=== PATIENT | female | born 1975 | race Caucasian/White ===

== ENCOUNTER 2020-07-13 07:30 | Emergency (ER) | payer BC, SELFPAY ==
--- NOTE | ~2020-07-13 | XR_ITS ---
EXAMINATION: XR chest 1V portable DATE: 07/13/2020 08:18 INDICATION: Cough, fever, shortness of breath. COVID-19 exposure. TECHNIQUE: A single frontal view of the chest was obtained. COMPARISON: Chest 2 views 09/22/2019 FINDINGS: The chest demonstrates clear lungs without pneumonia, pleural effusion, or pneumothorax. Th e heart size is normal. IMPRESSION: 1. No acute cardiopulmonary disease. Reviewed, dictated and finalized at location A.
[2020-07-13 07:39] VITALS: BP 138/96; PULSE 93; RESP 25; TEMP 37.9; O2SAT 97
--- NOTE | 2020-07-13 07:47 | ECG_ITS ---
Measurements Intervals [place] Rate: 93 P: 18 LA: 165 QRS: -13 QRSD: 78 T: 6 QT: 325 QTc: 405 Interpretive Statements SINUS RHYTHM BORDERLINE T WAVE ABNORMALITY- INFERIOR LEADS BASELINE ARTIFACT- I, II, AVR, AVL, AVF, V1 BORDERLINE ECG Electronically Signed On 07-13-2020 7:58:44 CDT by Sharad Sebastian D.O.
[2020-07-13 07:51] VITALS: PULSE 96
--- NOTE | 2020-07-13 07:56 | ED.SOB ---
HPI - SOB/Dyspnea General Chief Complaint: Shortness of Breath/Dyspnea Stated Complaint: fever/SOB/exposed to covid Time Seen by Provider: 07/13/20 07:49 Source: patient Mode of arrival: ambulatory Limitations: no limitations History of Present Illness HPI Narrative: Patient presents with COVID. Her mother was called with positive several days ago. Patient started her symptoms 2 days ago with diarrhea. Yesterday she had cough and shortness of breath and fever. She has a history of orthostatic hypotension. She has a history of an autoimmune disease. She is on disability. She lives with her and son. She took Tylenol for the fever. 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 She does not work outside the home. She has a history of breast cancer with double mastectomy. She said she had a history of A. fib, but the Holter monitor from 2016 showed sinus rhythm, MD elicited complaint: shortness of breath and cough Pertinent past history: other (Breast cancer) Onset (ago): day(s) Timing: constant Severity: moderate Associated symptoms: fever, cough and other (Diarrhea) Related Data Allergies Allergy/AdvReac Type Severity Reaction Status Date / Time pantoprazole Allergy Mild Itching Verified 09/22/19 00:03 sulfamethoxazole Allergy Mild Rash Verified 09/22/19 00:03 trimethoprim Allergy Mild Rash Verified 09/22/19 00:03 Review of Systems Review of Systems: Narrative: CONSTITUTIONAL: She has fever. ENT: Denies rhinorrhea, congestion, but does have sore throat. CARDIOVASCULAR: Denies chest pain, palpitations, or edema. RESPIRATORY: She has cough and dyspnea. GASTROINTESTINAL: She has abdominal pain, nausea, but not vomiting. GENITOURINARY: Denies dysuria or hematuria. MUSCULOSKELETAL: Denies back pain, joint pain, but does have myalgia. NEUROLOGIC: She has headache. . All systems reviewed & are unremarkable except as noted in HPI and below PMFSH Past Medical History Medical History COVID-19 Surgical History Surgical History History of mastectomy Family History Family History (Updated 03/02/17 @ 23:56 by DOCTOR UNKNOWN) Mother Family history of obesity Patient's mother is in good health Family history of diabetes mellitus in first degree relative Hypertension Family history of anemia Family history of heart disease in male family member before age 55 Sibling Family history of migraine headaches Patient's sister is in good health Patient's brother is in good health Hypertension Grandparent Family history of Alzheimer's disease Family history of malignant neoplasm of brain, Onset Age: 62 Father Family history of malignant neoplasm of brain Patient's father is Other Family history of allergic disorder Social History Social History Smoking status: Never smoker Second hand tobacco smoke exposure: No Smoking end date: 11/26/05 Alcohol intake: never Gender identity (if verbalized by the patient): Female Exam Narrative: Exam Narrative: GENERAL: Well-appearing, well-nourished, and in no acute distress. HEAD: Normocephalic, atraumatic. EYES: PERRLA and EOMI. ENT: Nares clear, no rhinorrhea or epistaxis. Mucous membranes moist. NECK: Supple. CHEST: Clear to auscultation. No respiratory distress. HEART: Regular rate and rhythm. No murmur heard. Normal peripheral pulses. ABDOMEN: Soft, nontender, nondistended, normal active bowel sounds. EXTREMITIES: Normal range of motion. No edema. SKIN: Warm, dry, no rash. NEURO: No focal deficits. Alert and oriented x3. PSYCH: Normal mood and affect. Course Vital Signs Vital signs: Vital Signs Temperature 100.3 F H 07/13/20 07:39 Pulse Rate 93 07/13/20 07:39 Respiratory Rate 25 H 07/13/20 07:39 Blood Pressure 138/96 H 07/13/20 07:39 Pulse Oximetry 97
[2020-07-13 08:11] LABS: Basophils Percent Auto 0.4 % (0.2-1.2); Eosinophils Percent Auto 0.6 % (0-4.4); Hematocrit 38.8 % (37.0-47.0); Hemoglobin 12.6 g/dL (12.0-15.0); Immature Granulocyte Absolute 0.02 K/mm3 (0.00-0.031); Immature Granulocyte Percent A 0.4 % (0-0.5); Lymphocytes Absolute Auto 0.68 K/mm3 (0.9-3.2); Lymphocytes Percent Auto 13.9 % (18.3-44.2); Mean Corpuscular HGB Conc 32.5 g/dl (32-36); Mean Corpuscular Hemoglobin 27.6 pg (26-34); Mean Corpuscular Volume 85.1 fl (80-100); Mean Platelet Volume 9.7 fl (7.4-10.4); Monocytes Absolute Auto 0.5 K/mm3 (0.1-0.6); Monocytes Percent Auto 10.5 % (2.6-8.5); Neutrophils Absolute Auto 3.6 K/mm3 (1.3-6.7); Neutrophils Percent Auto 74.2 % (45.5-73.1); Platelet Count Result 219 k/mm3 (150-375); Red Blood Count 4.56 M/mm3 (4.2-5.4); Red Cell Distribution Width 13.4 % (11.5-14.5); White Blood Count 4.9 K/mm3 (4.5-10.0)
[2020-07-13 08:17] LABS: Add Urine Microscopic? YES; Appearance Urine Clear (Clear); Bilirubin Urine Negative (Negative); Blood Urine Negative (Negative); Color Urine Straw (Yellow); Glucose Urine UA Negative (Negative); Ketones Urine Negative (Negative); Leukocyte Esterase Ur 3+ LEU/UL (Negative); Mucus Urine Rare /lpf; Nitrate Urine Negative (Negative); Protein Urine Negative (Negative); Specific Grav Ur 1.009 (1.001-1.035); Squamous Epithelial Cell Urine Rare /hpf (Few); Transitional Epi Cells Urine Rare /hpf (None Seen); Urobilinogen Urine Negative mg/dL (<2.0); WBC Urine 16-20 /hpf
[2020-07-13 08:33] LABS: Lactic Acid Reflex 0.9 mmol/L (0.7-2.1)
[2020-07-13 08:35] LABS: Alanine Aminotransferase 25 U/L (4-35); Albumin Level 4.2 g/dL (3.5-5.1); Alkaline Phosphatase 129 U/L (38-126); Anion Gap 9 mmol/L (8-16); Aspartate Amino Transferase 31 U/L (14-36); Bilirubin,Total 0.3 mg/dL (0.2-1.3); Blood Urea Nitrogen 10 mg/dL (7-17); Carbon Dioxide 28 mmol/L (22-30); Chloride 103 mmol/L (98-107); Estimated CRCL calculation 101 ml/min; Estimated Glomerular Filt Rate > 60; Glucose 133 mg/dL (65-105); Sodium 140 mmol/L (137-145)
[2020-07-13 09:07] LABS: Troponin I < 0.012 ng/mL (0.000-0.034)
[2020-07-13 09:10] VITALS: BP 122/82; PULSE 93; RESP 20; O2SAT 99
[2020-07-13 09:33] VITALS: BP 114/78; PULSE 90; RESP 12; O2SAT 98
== END 2020-07-13 09:35 | disposition home or self-care (01) ==
PROVIDERS: Emergency Provider Emergency Medicine; PCP Internal Medicine Cardiovascular Disease
DX: U07.1 COVID-19 (principal); Z85.3 Personal history of malignant neoplasm of breast; Z90.13 Acquired absence of bilateral breasts and nipples
CPT/HCPCS: 36415; 71045; 80053; 81001; 83605; 84484; 85025; 87040; 87086; 93005; 99284

== ENCOUNTER 2020-09-29 08:19 | Outpatient (CLI) | payer BC, MEDICARE, SELFPAY ==
--- NOTE | 2020-10-27 15:45 | WPDHOMESLEEP ---
Sleep Study - Home Unattended Date of Study: 09/29/20 Ordering Provider: Merlin Watson MD Interpreting Physician: Sara Lawson MD Home Sleep Study Type: Watch PAT Height: 1.75 m Weight: 109.769 kg Body Mass Index: 35.7 [place]: 17 Reason for Sleep Study Sleep problems Sleep History Vika Freeman is a 45 year old female who was referred for a portable home sleep test due to sleep problems. The sleep survey is not available to review. Her office visit is reviewed for symptoms, and her [place] score was 17 on Jul 15, 2020. Her medical history is reviewed. [facility] Past Medical History Medical History (Updated 10/27/20 @ 16:30 by Sara Lawson MD) Breast cancer stage 3, bilateral mastectomies Chronic migraine COVID-19 Depression with anxiety Diabetes mellitus type 2 in obese Gout History of stroke with residual deficit left-sided weakness History of thyroid cyst repaired Hypertension Hypothyroidism Multiple system atrophy Sleep disturbance Surgical History Surgical History (Updated 10/27/20 @ 16:04 by Sara Lawson MD) History of section History of mastectomy History of tonsillectomy Hx of cholecystectomy 1995 S/P ERCP twice in 2007 Family History Family History (Updated 03/02/17 @ 23:56 by DOCTOR UNKNOWN) Mother Family history of obesity Patient's mother is in good health Family history of diabetes mellitus in first degree relative Hypertension Family history of anemia Family history of heart disease in male family member before age 55 Sibling Family history of migraine headaches Patient's sister is in good health Patient's brother is in good health Hypertension Grandparent Family history of Alzheimer's disease Family history of malignant neoplasm of brain, Onset Age: 62 Father Family history of malignant neoplasm of brain Patient's father is Other Family history of allergic disorder Social History Social History Smoking status: Never smoker Second hand tobacco smoke exposure: No Smoking end date: 11/26/05 Alcohol intake: never Gender identity (if verbalized by the patient): Female Medications Medications: No medicaiton list was given; these medications were on the med reconciliation from 2019 allopurinol 300 mg a day atorvastatin 40 mg a day cyclobenzaprine 10 mg hydroxyzine hydrochloride 25 mg Q 12 hours p.r.n. itching levothyroxine 88 mcg a day meclizine 25 mg q.8 hours p.r.n. dizziness metformin ER 500 mg once daily Nuetec ODT 75 mg disintegrating tablet as needed MiraLax 17 g daily Trulance 3 mg a day vitamin D2 25173 units weekly Trulance 3 mg daily Sleep Procedure The sleep study was completed using SembrairePAT a technically adequate device with seven channels: peripheral arterial tone, actigraphy, body position, snore, respiratory movement, pulse oximetry, sleep staging, and heart rate. Prior to using the device, the patient received verbal and written instructions for its application and was provided with the help desk phone number for additional telephonic instruction with 24-hour availability of qualified personnel to answer questions. Sleep Architecture The total recording time was 8 hours 33 minutes. The total sleep time was 7 hours 30 minutes. The patient had 28.4% REM out of the total sleep time. She had 37 0.3% light sleep and 34% deep sleep. This is normal sleep architecture. She spent 12. 2% of the test awake and 87.7% of the test asleep. Sleep efficiency was 87%, normal. Sleep latency was 19 minutes which is normal. REM latency was 201 minutes which is prolonged. She woke up 7 times during the night. there were 4 REM cycles the became progressively longer during the study which is normal. She spent 26% of the study supine, 68% on the right lateral position and 5% in the left lateral position. Respiratory Analysis The apnea-hypopnea index is
[2020-10-27 15:55] VITALS: BMI 35.7
== END 2020-09-29 08:20 | disposition home or self-care (01) ==
LOC: ANHCSM 08:20
PROVIDERS: PCP Internal Medicine Cardiovascular Disease; Visit Provider Family Medicine
DX: G47.10 Hypersomnia, unspecified (principal)
CPT/HCPCS: 95800

== ENCOUNTER 2021-01-20 08:15 | Outpatient (CLI) | payer BC, MEDICARE, SELFPAY ==
--- NOTE | 2021-01-20 16:12 | WPDPFTINT ---
PFT Interpretation This is a pulmonary function test with pre and post-bronchodilator spirometry, plethysmography and diffusing capacity. The test was performed and results interpreted in accordance with the 2019 and 2005 ATS/ERS Task Force guidelines respectively using the Ross/Yaquelin reference equations. Findings: Spirometry: The contour of the inspiratory and expiratory flow tracing are normal. The pre bronchodilator FVC is 3.60 L, 90% predicted. The pre bronchodilator FEV1 is 3.09 L, 101% predicted. The FEV1: FVC ratio was 86%. The post bronchodilator FVC is 3.67 L, representing a 2% increase. The post bronchodilator FEV1 is 3.11 L, representing a 1% increase. Plethysmography: The total lung capacity is 4.89 L, 81% predicted. The functional residual capacity is 1.97 L, 74% predicted. The residual volume is 1.29 L, 61% predicted. Diffusing capacity: The absolute diffusion capacity is 19.3, 64% predicted. Diffusion capacity corrected for alveolar volume is 4.25, 101% predicted. Impression: There is a mild restrictive ventilatory abnormality with a normal FEV1. The spirometry is normal without evidence of an obstructive abnormality. There is no significant improvement after inhaling a single dose of albuterol. The absolute diffusing capacity is mildly decreased and normalizes when corrected for alveolar volume. There are no prior studies for comparison
--- NOTE | 2021-01-20 16:15 | WPDSIXMINUTE ---
Six Minute Walk This is a 6 minutes walk test. The test was performed and interpreted in accordance with the 2014 ERS/ATS task force guidelines. Findings: The patient's resting room air oxygen saturation measured by pulse oximetry was 97% and her heart rate was 72 bpm. Patient ambulated for 427 meters and oxygen saturation remained 94 to 98%. Heart rate at the end of the study was 105 bpm. There are no prior studies for comparison.
== END 2021-01-20 08:16 | disposition home or self-care (01) ==
PROVIDERS: PCP Family Medicine; Visit Provider Internal Medicine Critical Care Medicine
DX: R06.02 Shortness of breath (principal); R94.2 Abnormal results of pulmonary function studies
CPT/HCPCS: 94060; 94618; 94726; 94729

== ENCOUNTER → 2021-09-15 13:15 | Outpatient (CLI) | payer BC, MEDICARE, SELFPAY ==
--- NOTE | ~2021-09-15 | MR_ITS ---
EXAMINATION: MR brain/brain stem wo/w con DATE: 09/15/2021 14:09 INDICATION: Stroke. Brain mass. Left hemiparesis. TECHNIQUE: Magnetic resonance imaging (MRI) of the brain and brainstem was performed without and with 20 mL MultiHance intravenous contrast. Sequences included sagittal and axial T1-weighted FSE, axial diffusion-weighted FS EPI, axial T2*-weighted GRE, axial T2-weighted FLAIR Propeller, and axial T2-we ighted Propeller. Postcontrast sequences included axial, sagittal, and coronal T1-weighted FSE. Appar ent diffusion coefficient (ADC) maps were created. COMPARISON: Brain MRI 09/22/2019 FINDINGS: Overlying the left parietal lobe, there is a 1.6 x 1.2 x 1.7 cm enhancing extra-axial mass with dural tails, consistent with a meningioma. There is no acute ischemic infarct or intracranial he morrhage. The ventricles are normal in size. The paranasal sinuses are clear. The orbits are normal. The mastoid air cells are normal. In the right posterior scalp, there is a 2.1 cm nonenhancing subcut aneous mass, most likely a sebaceous cyst. IMPRESSION: 1. 1.7 cm meningioma overlying left parietal lobe, not significantly changed from 1.6 cm on 9. Reviewed, dictated and finalized at location A. IMPRESSION: 1. 1.7 cm meningioma overlying left parietal lobe, not significantly changed fr om 1.6 cm on 09/22/2019.
[2021-09-15 13:46] LABS: Estimated Glomerular Filt Rate > 60
== END ==
DX: Z86.73 Personal history of transient ischemic attack (TIA), and cerebral infarction without residual deficits (principal); R93.0 Abnormal findings on diagnostic imaging of skull and head, not elsewhere classified
CPT/HCPCS: 70553; A9577

== ENCOUNTER 2022-05-23 03:26 | Emergency (ER) | payer BC, MEDICARE, SELFPAY ==
--- NOTE | ~2022-05-23 | CT_ITS ---
EXAMINATION: CTA chest PE protocol DATE: 05/23/2022 06:40 INDICATION: Tachycardia. TECHNIQUE: Computed tomography (CT) pulmonary angiogram of the chest was performed with 100 mL Omnipa que-350 intravenous contrast. Additional 3D reconstructions utilizing coronal maximum intensity proje ction (MIP) were performed. Automated exposure control and iterative reconstruction technique were em ployed. The dose-length product was 864.80 mGy-cm. COMPARISON: None FINDINGS: Excellent contrast opacification of the pulmonary arteries. There is mild streak artifact from dense contrast in the superior vena cava and right atrium. Mild scattered respiratory motion artifact which does not significantly limit evaluation. No pulmonary embolism. No pneumonia, pulmonary edema, pleur al effusion or pneumothorax. Minimal discoid atelectasis at the lingula. Heart size is normal. No per icardial effusion. Thoracic aorta is normal in caliber with no dissection. No pathologically enlarged thoracic or upper abdominal lymphadenopathy. A couple small foci of pneumobilia in the liver likely related to prior cholecystectomy with surgical clips at the gallbladder fossa. Focal hepatic steatosi s along the ligamentum teres. Mild thoracic spondylosis. IMPRESSION: 1. No pulmonary embolism or other acute cardiopulmonary disease. Reviewed, dictated and finalized at location A.
[2022-05-23 03:29] VITALS: BP 122/71; PULSE 116; RESP 20; TEMP 36.4; O2SAT 100
--- NOTE | 2022-05-23 03:31 | ECG_ITS ---
Measurements Intervals [place] Rate: 92 P: 36 IN: 152 QRS: -6 QRSD: 72 T: 10 QT: 336 QTc: 418 Interpretive Statements SINUS RHYTHM COMPARED TO ECG 07/13/2020 07:48:20 NO SIGNIFICANT CHANGES Electronically Signed On 05-23-2022 10:54:51 CDT by Som Caceres M.D.
[2022-05-23 03:50] VITALS: BP 105/92; PULSE 93; RESP 18; O2SAT 100
[2022-05-23 04:06] LABS: Basophils Percent Auto 0.4 % (0.2-1.2); Eosinophils Absolute Auto 0.1 K/mm3 (0-0.3); Eosinophils Percent Auto 0.9 % (0-4.4); Hematocrit 41.2 % (37.0-47.0); Hemoglobin 13.6 g/dL (12.0-15.0); Immature Granulocyte Absolute 0.01 K/mm3 (0.00-0.031); Immature Granulocyte Percent A 0.1 % (0-0.5); Lymphocytes Absolute Auto 2.22 K/mm3 (0.9-3.2); Lymphocytes Percent Auto 31.7 % (18.3-44.2); Mean Corpuscular Hemoglobin 28.4 pg (26-34); Mean Platelet Volume 9.1 fl (7.4-10.4); Monocytes Absolute Auto 0.4 K/mm3 (0.1-0.6); Monocytes Percent Auto 6.1 % (2.6-8.5); Neutrophils Absolute Auto 4.3 K/mm3 (1.3-6.7); Neutrophils Percent Auto 60.8 % (45.5-73.1); Platelet Count Result 275 k/mm3 (150-375); Red Blood Count 4.79 M/mm3 (4.2-5.4)
[2022-05-23 04:15] LABS: Alanine Aminotransferase 27 U/L (6-35); Albumin Level 4.9 g/dL (3.5-5.1); Alkaline Phosphatase 129 U/L (38-126); Anion Gap 8 mmol/L (8-16); Aspartate Amino Transferase 28 U/L (14-36); Bilirubin,Total 0.3 mg/dL (0.2-1.3); Blood Urea Nitrogen 19 mg/dL (7-17); Calcium 9.8 mg/dL (8.4-10.2); Carbon Dioxide 30 mmol/L (22-30); Chloride 103 mmol/L (98-107); Estimated CRCL calculation 98 ml/min; Estimated Glomerular Filt Rate > 60; Glucose 128 mg/dL (65-110); Magnesium 2.2 mg/dL (1.6-2.3); Potassium 4.4 mmol/L (3.4-5.0); Sodium 141 mmol/L (137-145)
--- NOTE | 2022-05-23 04:41 | ED.ARRPALP ---
HPI - Arrhythmia/Palpitations General Chief Complaint: Arrhythmia/Palpitations <Peter Cristobal MD - Last Filed: 05/23/22 06:52> Stated Complaint: irregular hearbeat <Peter Cristobal MD - Last Filed: 05/23/22 06:52> Time Seen by Provider: 05/23/22 03:30 <Peter Cristobal MD - Last Filed: 05/23/22 06:52> History of Present Illness HPI narrative: 47-year-old female presenting to the emergency department for evaluation of heart palpitations. Patient states that her heart rate has been close to 100 for most the night and that she had an episode where it did hit 150 bpm. Patient states she does have some associated chest tightness. Patient states that she had a TIA on the and was treated in outside hospital. Patient denies any prior history of HI but does states she has prior history of CVA and TIAs. <Peter Cristobal MD - Last Filed: 05/23/22 06:52> Related Data Home Medications: Home Medications Medication Instructions Recorded Confirmed allopurinol 100 mg tablet 100 mg PO DAILY 12/21/20 12/21/20 (Zyloprim) alprazolam 1 mg tablet (Xanax) 1 mg PO DAILY 12/21/20 12/21/20 aripiprazole 2 mg tablet (Abilify) 2 mg PO DAILY 12/21/20 12/21/20 aspirin 81 mg tablet,delayed 81 mg PO DAILY 12/21/20 12/21/20 release (Adult Aspirin Regimen) atorvastatin 20 mg tablet (Lipitor) 20 mg PO DAILY 12/21/20 12/21/20 buspirone 5 mg tablet 5 mg PO BID 12/21/20 12/21/20 cephalexin HCl 500 mg tablet See Rx Instructions PO Q12H 12/21/20 12/21/20 cholecalciferol (vitamin D3) 125 125 mcg PO DAILY 12/21/20 12/21/20 mcg (5,000 unit) capsule cyclobenzaprine 5 mg tablet 5 mg PO TID PRN 12/21/20 12/21/20 erythromycin 500 mg particles in 500 mg PO DAILY 12/21/20 12/21/20 tablet ezetimibe 10 mg tablet (Zetia) 10 mg PO DAILY 12/21/20 12/21/20 ferrous sulfate 325 mg (65 mg 325 mg PO DAILY 12/21/20 12/21/20 iron) tablet gabapentin 300 mg capsule 300 mg PO DAILY 12/21/20 12/21/20 (Neurontin) hydroxyzine HCl 25 mg tablet 25 mg PO BID PRN 12/21/20 12/21/20 indomethacin 50 mg rectal 50 mg RECTAL BID 12/21/20 12/21/20 suppository (Indocin) linaclotide 290 mcg capsule 290 mcg PO DAILY 12/21/20 12/21/20 (Linzess) meclizine 25 mg chewable tablet 25 mg PO DAILY 12/21/20 12/21/20 meloxicam 7.5 mg tablet (Mobic) 7.5 mg PO DAILY 12/21/20 12/21/20 metformin 500 mg tablet 500 mg PO DAILY 12/21/20 12/21/20 (Glucophage) midodrine 2.5 mg tablet 2.5 mg PO BID 12/21/20 12/21/20 modafinil 100 mg tablet (Provigil) 100 mg PO QAM 12/21/20 12/21/20 naproxen 500 mg tablet (Naprosyn) 500 mg PO BID 12/21/20 12/21/20 omeprazole 40 mg capsule,delayed 40 mg PO DAILY 12/21/20 12/21/20 release prazosin 2 mg capsule (Minipress) 2 mg PO BID 12/21/20 12/21/20 pregabalin 150 mg capsule (Lyrica) 150 mg PO BID 12/21/20 12/21/20 promethazine 25 mg tablet 25 mg PO Q6H PRN 12/21/20 12/21/20 thyroid (pork) 15 mg tablet 15 mg PO DAILY 12/21/20 12/21/20 ([place] Thyroid) tramadol 100 mg capsule 100 mg PO DAILY 12/21/20 12/21/20 24h,extended release(25-75) <Peter Cristobal MD - Last Filed: 05/23/22 06:52> Allergies/Adverse Reactions: Allergies Allergy/AdvReac Type Severity Reaction Status Date / Time pantoprazole Allergy Mild Itching Verified 05/23/22 03:34 sulfamethoxazole Allergy Mild Rash Verified 05/23/22 03:34 trimethoprim Allergy Mild Rash Verified 05/23/22 03:34 <Peter Cristobal MD - Last Filed: 05/23/22 06:52> [facility] Past Medical History Medical History: Medical History Breast cancer stage 3, bilateral mastectomies Chronic migraine COVID-19 Depression with anxiety Diabetes mellitus type 2 in obese Gout History of stroke with residual deficit left-sided weakness History of thyroid cyst repaired Hypertension Hypothyroidism Multiple system atrophy Sleep disturbance <Peter Cristobal MD - Last Filed: 05/23/22 06:52> Surgical History Surgical H
[2022-05-23 04:49] LABS: Troponin I < 0.012 ng/mL (0.000-0.034)
[2022-05-23] MEDS: SODIUM CHLORIDE 0.9% IV 500 ML 999 ML IV CONT (04:59)
[2022-05-23 05:39] VITALS: BP 114/92; PULSE 110; RESP 20; O2SAT 98
[2022-05-23 05:48] LABS: Free T4 Free Thyroxine Reflex 0.91 ng/dL (0.78-2.19)
[2022-05-23 06:08] VITALS: BP 107/86; PULSE 105; RESP 18; O2SAT 97
[2022-05-23 06:31] LABS: Total Triiodothyronine (T3) 1.09 NG/ML (0.97-1.69)
[2022-05-23 07:15] LABS: Troponin I < 0.012 ng/mL (0.000-0.034)
--- NOTE | 2022-05-23 08:20 | PC.NURSE ---
call care coordination and in the process of getting pt a monitor.
--- NOTE | 2022-05-26 12:53 | WPDHOLTEREM ---
Holter/Event Monitor Holter/Event Monitor Date of procedure: 05/26/22 Holter/Event Procedure: 48 Hr Holter Monitor Diagnosis: Palpitations Indications: Palpitation Image/Tracing Quality: Favorable Finding: The basic cardiac rhythm is sinus with normal [place] QRS and QT intervals. The heart rate varies from a minimum of 53 to a maximum of 140 with an average rate of 82. There were no abrupt pauses are examples of abnormal AV conduction observed. There were no examples of atrial fibrillation. Supraventricular ectopic activity was rare consisting of a total of 19 PACs during the entire 48 hours. There was 1 4 beat run of SVT that occurred on the day at 9:11 p.m.. Remainder of these were in the form of single beats. No ventricular ectopic activity of any kind was observed during this exam The patient maintained a diary which indicates there were long periods of the sensation of heart fluttering or dizziness a during these 48 hours. On every single occasion the patient's cardiac rhythm was sinus with normal heart rate and no ectopic activity of any kind Conclusion: 1. 48 hour Holter monitor essentially unremarkable with sinus rhythm and normal heart rate variability 2. Low-frequency atrial ectopic activity which included 1 4 beat run of SVT which was not symptomatic 3. No ventricular ectopic activity noted 4. Numerous diary entries all correlate with sinus rhythm without a rate Carlos Vitale MD [facility]
== END 2022-05-23 09:00 | disposition home or self-care (01) ==
PROVIDERS: Emergency Provider Emergency Medicine; PCP Family Medicine
DX: R00.2 Palpitations (principal); R00.0 Tachycardia, unspecified; I69.954 Hemiplegia and hemiparesis following unspecified cerebrovascular disease affecting left non-dominant side; E11.9 Type 2 diabetes mellitus without complications; I10 Essential (primary) hypertension; E03.9 Hypothyroidism, unspecified; M10.9 Gout, unspecified; F41.8 Other specified anxiety disorders; Z90.13 Acquired absence of bilateral breasts and nipples; Z85.3 Personal history of malignant neoplasm of breast; Z79.82 Long term (current) use of aspirin; Z79.84 Long term (current) use of oral hypoglycemic drugs
CPT/HCPCS: 36415; 71275; 80053; 83735; 84439; 84443; 84480; 84484; 85025; 93005; 93225; 93226; 96360; 96361; 99284; J7040; Q9967

== ENCOUNTER 2023-10-06 12:41 | Outpatient (CLI) | payer BC, MEDICARE, SELFPAY ==
--- NOTE | ~2023-10-06 | MR_ITS ---
EXAMINATION: MR brain/brain stem wo/w con DATE: 10/06/2023 14:34 INDICATION: Multiple system atrophy. TECHNIQUE: Magnetic resonance imaging (MRI) of the brain and brainstem was performed without and with 17 mL MultiHance intravenous contrast. COMPARISON: Brain MRI 09/15/21 FINDINGS: There is no acute ischemic infarct or intracranial hemorrhage. There is a 1.9 x 1.7 x 1.4 c m enhancing extra-axial mass overlying the left parietal lobe, consistent with a meningioma. The vent ricles are normal in size. The paranasal sinuses are clear. The orbits are normal. The mastoid air ce lls are normal. There is a 2.8 cm subcutaneous mass in right posterior scalp, likely a sebaceous cyst . IMPRESSION: 1. 1.9 cm meningioma overlying left parietal lobe which measured 1.7 cm on 09/15/2021. Reviewed, dictated and finalized at location E. 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 1.9 cm meningioma overlying left parietal lobe which measured 1.7 cm on 08/27.
--- NOTE | ~2023-10-06 | MR_ITS ---
EXAMINATION: MR cervical spine wo/w con DATE: 10/06/2023 14:34 INDICATION: Multiple system atrophy. Breast cancer. TECHNIQUE: Magnetic resonance imaging (MRI) of the cervical spine was performed without and with 17 m L MultiHance intravenous contrast. COMPARISON: None FINDINGS: Bone alignment is normal. Vertebral body heights and intervertebral disc heights are normal . The spinal cord signal intensity is normal. The following disc levels are specifically discussed: C2-C3: The disc does not extend beyond the endplate margin. There is no uncovertebral joint osteoarth ritis. There is mild bilateral facet joint osteoarthritis. There is no neural foraminal stenosis. The re is no central canal stenosis. C3-C4: The disc does not extend beyond the endplate margin. There is no uncovertebral joint osteoarth ritis. There is mild bilateral facet joint osteoarthritis. There is no neural foraminal stenosis. The re is no central canal stenosis. C4-C5: The disc does not extend beyond the endplate margin. There is no uncovertebral joint osteoarth ritis. There is mild bilateral facet joint osteoarthritis. There is no neural foraminal stenosis. The re is no central canal stenosis. C5-C6: There is a central protrusion with annular fissure. There is mild right uncovertebral joint os teoarthritis. There is no facet joint osteoarthritis. There is no neural foraminal stenosis. There is no central canal stenosis. C6-C7: There is a central extrusion. There is mild bilateral uncovertebral joint osteoarthritis. Ther e is mild bilateral facet joint osteoarthritis. There is mild bilateral neural foraminal stenosis. Th ere is mild central canal stenosis with ventral indentation of the spinal cord. C7-T1: The disc does not extend beyond the endplate margin. There is no uncovertebral joint osteoarth ritis. There is mild bilateral facet joint osteoarthritis. There is no neural foraminal stenosis. The re is no central canal stenosis. IMPRESSION: 1. Normal spinal cord. 2. Mild cervical spondylosis. Reviewed, dictated and finalized at location E. 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
== END 2023-10-06 12:42 | disposition home or self-care (01) ==
PROVIDERS: PCP Family Medicine
DX: G23.9 Degenerative disease of basal ganglia, unspecified (principal); I67.9 Cerebrovascular disease, unspecified; M47.812 Spondylosis without myelopathy or radiculopathy, cervical region; D32.0 Benign neoplasm of cerebral meninges
CPT/HCPCS: 70553; 72156; A9577

== ENCOUNTER 2025-08-01 05:33 | Emergency (ER) | payer BC, MEDICARE, SELFPAY ==
--- OUTSIDE RECORDS SUMMARY | 2019-06-03 19:00 | XMS_ITS | Continuity of Care Document ---
Author Organization [facility]IN Z[facility] Address [address] [place] [address] Phone Care Team Providers Care Microscopist Name Role Phone Mervin Beebe MD Unavailable Unavailable Procedures Procedure Date ELECTROCARDIOGRAM REPORT Advance Directives Directive Yes / No Effective Date File Name No Information Encounters Encounter Description Practice Location Reason(s) For Visit Diagnoses Date Provider Providers Copied on Encounter [facility]ERV[facility] Zaman, [address] [place] [address], [facility], tel:[phone] [facility] No Information 9 Abiel Joshi. [address] [place] [address], [facility], . tel:[phone] Referring Provider: Anastasiia Mott, [address] [place] [address], [place], [address]. tel:[phone] Family History Family Member Type Diagnosis Age At Onset No Information Payers Payer name Insurance type Covered alliance party ID Authorloreleia hamida(s) [facility] [id number] Social History Type Description Quantity Date Captured Comments Sex Female Smoking Status No Information Chief Complaint And Reason For Visit No Information Reason For Referral Reason For Referral No Information History Of Present Illness Encounter Date Complaint History Of Prese nt Illness No Information Functional Status Date Functional Assessmen t No Information Instructions Date Instruction Additional Infor mation No Information Assessments Type Assessment Date No Information Patient Care Teams Name Effective Dates (start - stop) Status Members No Information
--- OUTSIDE RECORDS SUMMARY | 2025-03-03 08:45 | XMS_ITS ---
Author Organization [facility] [employer] [facility] Address [address] [place] [address] Care Team Providers Care Chief Optometry Service Name Role Phone Walter ANSARI, [facility] Primary Care Provider Obi Back Unavailable [phone] REASON FOR VISIT R/S-pt got the wrong address Social History Sex Assigned At : Social History Observation Description Sex Assigned At Female Encounters Encounter Location Date Provider Diagnosis [address] [address] 03/03/2025 Obi Byrnes Plan Of Treatment No Information Progress Notes * MADY ANGUIANO SDOB: [birth year] (50 yo F)Acc No.[id number]:03/03/2025 Patient: MADY BOURGEOIS Provider: ASHWIN DUNAWAY :1975 A ge:49 Y S ex:Female Date:03/03/2025 Address:[address] [phone] Pcp:Merlin Watson MD Subjective: * Chief Complaints: * R /S-pt got the wrong address Billing Information: * Procedure Codes: * Electronic signature of ASHWIN Garzon on 08/01/2025 at 06:14 AM CDT Sign off status: Pending * Provider: ASHWIN DUNAWAY Date: 0 03/03/2025 Generated for Jodiei dain/Eduardo/eTransmitting on: 0 08/01/2025 06:14 AM CDT
[2025-08-01 05:40] VITALS: BP 115/86; RESP 14; TEMP 36.3; O2SAT 99
[2025-08-01 05:45] VITALS: BP 115/86; PULSE 84; RESP 19; O2SAT 99
[2025-08-01 05:53] VITALS: PULSE 80
--- NOTE | 2025-08-01 06:06 | ED.GENADULT ---
HPI - General Adult General Chief complaint: Unspecified Stated complaint: my brain is not right Time Seen by Provider: 08/01/25 05:48 History of Present Illness HPI narrative: Patient is a 50-year-old female who presents emergency department this morning with complaint that her brain is not functioning right. Patient states that she feels as though her pain is not communicating well with the rest of her body. This is a chronic condition and patient has been evaluated for this recently at an outside facility. Patient states that she had a grand mal seizure 2 weeks ago and was seen an outside facility and had a full workup and a CT brain which did not show anything. Per patient was instructed to follow-up with cardiology and Neurology and has appointments with both them in 3 days on SundayAugust 04. When asked what prompted him to come to the emergency department today she states that she felt as though her brain was not communicating with her breathing and she wanted to get checked out. Denies any actual specific symptoms including any headaches, dizziness, vision changes, focal weakness, numbness and tingling. Patient confirms that this is a chronic condition and has been ongoing for many years. Related Data Home Medications ?Medication ?Instructions ?Recorded ?Confirmed ?Last Taken ?Type allopurinol 100 mg tablet 100 mg PO DAILY 12/21/20 12/21/20 Unknown History (Zyloprim) alprazolam 1 mg tablet (Xanax) 1 mg PO DAILY 12/21/20 12/21/20 Unknown History aripiprazole 2 mg tablet (Abilify) 2 mg PO DAILY 12/21/20 12/21/20 Unknown History aspirin 81 mg tablet,delayed 81 mg PO DAILY 12/21/20 12/21/20 Unknown History release (Adult Aspirin Regimen) atorvastatin 20 mg tablet (Lipitor) 20 mg PO DAILY 12/21/20 12/21/20 Unknown History buspirone 5 mg tablet 5 mg PO BID 12/21/20 12/21/20 Unknown History cephalexin HCl 500 mg tablet See Rx Instructions PO Q12H 12/21/20 12/21/20 Unknown History cholecalciferol (vitamin D3) 125 125 mcg PO DAILY 12/21/20 12/21/20 Unknown History mcg (5,000 unit) capsule cyclobenzaprine 5 mg tablet 5 mg PO TID PRN 12/21/20 12/21/20 Unknown History erythromycin 500 mg particles in 500 mg PO DAILY 12/21/20 12/21/20 Unknown History tablet ezetimibe 10 mg tablet (Zetia) 10 mg PO DAILY 12/21/20 12/21/20 Unknown History ferrous sulfate 325 mg (65 mg 325 mg PO DAILY 12/21/20 12/21/20 Unknown History iron) tablet gabapentin 300 mg capsule 300 mg PO DAILY 12/21/20 12/21/20 Unknown History (Neurontin) hydroxyzine HCl 25 mg tablet 25 mg PO BID PRN 12/21/20 12/21/20 Unknown History indomethacin 50 mg rectal 50 mg RECTAL BID 12/21/20 12/21/20 Unknown History suppository (Indocin) linaclotide 290 mcg capsule 290 mcg PO DAILY 12/21/20 12/21/20 Unknown History (Linzess) meclizine 25 mg chewable tablet 25 mg PO DAILY 12/21/20 12/21/20 Unknown History meloxicam 7.5 mg tablet (Mobic) 7.5 mg PO DAILY 12/21/20 12/21/20 Unknown History metformin 500 mg tablet 500 mg PO DAILY 12/21/20 12/21/20 Unknown History (Glucophage) midodrine 2.5 mg tablet 2.5 mg PO BID 12/21/20 12/21/20 Unknown History modafinil 100 mg tablet (Provigil) 100 mg PO QAM 12/21/20 12/21/20 Unknown History naproxen 500 mg tablet (Naprosyn) 500 mg PO BID 12/21/20 12/21/20 Unknown History omeprazole 40 mg capsule,delayed 40 mg PO DAILY 12/21/20 12/21/20 Unknown History release prazosin 2 mg capsule (Minipress) 2 mg PO BID 12/21/20 12/21/20 Unknown History pregabalin 150 mg capsule (Lyrica) 150 mg PO BID 12/21/20 12/21/20 Unknown History promethazine 25 mg tablet 25 mg PO Q6H PRN 12/21/20 12/21/20 Unknown History thyroid (pork) 15 mg tablet 15 mg PO DAILY 12/21/20 12/21/20 Unknown History ([place] Thyroid) tramadol 100 mg capsule 100 mg PO DAILY 12/21/20 12/21/20 Unknown History 24h,extended release(25-75) Allergies Allergy/AdvReac Type Severity Reaction Status Date / Time pantoprazole Allergy Mild Itching Verified 08/01/25 05:48 sulfamethoxazole Allergy Mild Rash Verified 08/01/25 05:48 trimethoprim Allergy Mild Rash Verified 08/01/25 05:48 Review of Systems Review of Systems: All systems are reviewed and are negative unless stated otherwise in the HPI. [facility] Past Medical History Medical History Breast cancer stage 3, bilateral mastectomies History of thyroid cyst repaired History of stroke with residual deficit left-sided weakness Hypothyroidism Gout Diabetes mellitus type 2 in obese Multiple system atrophy Sleep disturbance Depression with anxiety Chronic migraine Hypertension COVID-19 Surgical History Surgical History S/P ERCP twice in 2007 Hx of cholecystectomy 1996 History of section History of tonsillectomy History of mastectomy Family History Family History Mother Family history of obesity Patient's mother is in good health Family history of diabetes mellitus in first degree relative Hypertension Family history of anemia Family history of heart disease in male family member before age 55 Sibling Family history of migraine headaches Patient's sister is in good health Patient's brother is in good health Hypertension Grandparent Family history of Alzheimer's disease Family history of malignant neoplasm of brain, Onset Age: 62 Father Family history of malignant neoplasm of brain Patient's father is Other Family history of allergic disorder Social History Social History Social History: lives at home with her and son Smoking status: Never smoker Second hand tobacco smoke exposure: No Smoking end date: 11/26/05 Alcohol intake: never Substance use: current Substance use type: marijuana Other substance usage details: smokes medical marijuana at night Occupation/Education: unemployed Gender identity (if verbalized by the patient): Female Exam Narrative: General: Alert, awake, afebrile, in no acute distress. HEENT: PERRL, no rhinorrhea, no post nasal drip, oropharynx clear. Neck: Trachea midline, no JVD, no lymphadenopathy. Cardiovascular: Regular rate and rhythm, no murmurs, rubs or gallops, no peripheral edema. Respiratory: Clear to auscultation bilaterally, no tachypnea, no wheezing, no rhonchi, no rubs, no respiratory distress. Abdomen: Soft, nontender, nondistended, no rebound, no guarding, no peritoneal signs. Musculoskeletal: No joint swelling or deformity, normal muscle tone. Skin: No rashes or petechia, no signs of infection. Psychiatric: Alert and oriented, normal behavior and judgment for situation. Neurological: Alert and oriented to person, place, and time. Follows all commands. No focal deficits, speech is clear and fluent. Course Vital Signs Vital signs: Vital Signs Temperature 97.4 F L 08/01/25 05:40 Respiratory Rate 14 08/01/25 05:40 Blood Pressure 115/86 08/01/25 05:40 Pulse Oximetry 99 08/01/25 05:40 Oxygen Delivery Room Air 08/01/25 05:40 Temperature 97.4 F L 08/01/25 05:40 Pulse Rate 80 08/01/25 05:53 Respiratory Rate 19 08/01/25 05:45 Blood Pressure 115/86 08/01/25 05:45 Pulse Oximetry 99 08/01/25 05:45 Oxygen Delivery Room Air 08/01/25 05:40 Medical Decision Making MDM Narrative Medical decision making narrative: The patient was evaluated by myself in the emergency department. History is obtained from patient who is an independent historian and physical exam was performed. External medical records were reviewed at this time. At this time, I did have an extended discussion with the patient regarding what we can offer her in the emergency department. I informed her that given that she had recently had a CT of her head and blood work obtained within the last 2 weeks I do not feel as though repeating imaging or blood work is going to show us anything different. Inform the patient that we cannot order an MRI of the emergency department and this is something redness to be ordered as an outpatient through her neurologist and did encourage her to go to her neurologist appointment in 3 days and patient is agreeable with this plan. Differential diagnosis considerations include anxiety, acute stress reaction, chronic illness. Comorbidities impacting this visit include none. I have evaluated and discussed social determinants of health with the patient that could potentially impact subsequent diagnosis and treatment plans. On repeat assessment of the patient, reevaluation revealed that the patient is doing well and is in no acute distress. Patient symptoms have remained stable since she arrived to our emergency department. Repeat vital signs were all reviewed and noted to be stable. Differential diagnosis and treatment plan were discussed with the patient at bedside. Patient agrees with discussion and after shared medical decision making agrees with discharge. All questions were answered to the patient's satisfaction. Patient will follow up with Neurology as scheduled for her upcoming appointment in 3 days. Patient was provided with strict return precautions and instructed to return to the emergency department if any new or worsening symptoms develop. The patient was discharged in stable condition. Vital Signs Vital Signs: Vital Signs Temperature 97.4 F L 08/01/25 05:40 Respiratory Rate 14 08/01/25 05:40 Blood Pressure 115/86 08/01/25 05:40 Pulse Oximetry 99 08/01/25 05:40 Oxygen Delivery Room Air 08/01/25 05:40 Temperature 97.4 F L 08/01/25 05:40 Pulse Rate 80 08/01/25 05:53 Respiratory Rate 19 08/01/25 05:45 Blood Pressure 115/86 08/01/25 05:45 Pulse Oximetry 99 08/01/25 05:45 Oxygen Delivery Room Air 08/01/25 05:40 Discharge Plan Discharge Clinical Impression: Encounter for medical screening examination Patient Disposition: Home Condition: Stable Instructions: Antibiotic Form Additional Instructions: Please follow-up with neurology as scheduled for upcoming appointment in 3 days. Return to the ED if any new or worsening symptoms develop. Patient Language: Citizen Of [place] Prescriptions: No Action allopurinol [Zyloprim] 100 mg tablet 100 mg PO DAILY alprazolam [Xanax] 1 mg tablet 1 mg PO DAILY aripiprazole [Abilify] 2 mg tablet 2 mg PO DAILY aspirin [Adult Aspirin Regimen] 81 mg tablet,delayed release (DR/EC) 81 mg PO DAILY atorvastatin [Lipitor] 20 mg tablet 20 mg PO DAILY buspirone 5 mg tablet 5 mg PO BID cyclobenzaprine 5 mg tablet 5 mg PO TID PRN cholecalciferol (vitamin D3) 125 mcg (5,000 unit) capsule 125 mcg PO DAILY erythromycin 500 mg tablet, particles/crystals 500 mg PO DAILY ezetimibe [Zetia] 10 mg tablet 10 mg PO DAILY ferrous sulfate 325 mg (65 mg iron) tablet 325 mg PO DAILY gabapentin [Neurontin] 300 mg capsule 300 mg PO DAILY hydroxyzine HCl 25 mg tablet 25 mg PO BID PRN Indocin 50 mg suppository 50 mg MT BID Linzess 290 mcg capsule 290 mcg PO DAILY meclizine 25 mg tablet,chewable 25 mg PO DAILY meloxicam [Mobic] 7.5 mg tablet 7.5 mg PO DAILY metformin [Glucophage] 500 mg tablet 500 mg PO DAILY midodrine 2.5 mg tablet 2.5 mg PO BID Rx Instructions: do not give last dose of day after 6PM or within 4 hrs of bedtime modafinil [Provigil] 100 mg tablet 100 mg PO QAM naproxen [Naprosyn] 500 mg tablet 500 mg PO BID omeprazole 40 mg capsule,delayed release(DR/EC) 40 mg PO DAILY prazosin [Minipress] 2 mg capsule 2 mg PO BID pregabalin [Lyrica] 150 mg capsule 150 mg PO BID promethazine 25 mg tablet 25 mg PO Q6H PRN thyroid (pork) [[place] Thyroid] 15 mg tablet 15 mg PO DAILY tramadol 100 mg capsule,ER biphase 24 hr 25-75 100 mg PO DAILY cephalexin HCl 500 mg tablet See Rx Instructions PO Q12H Rx Instructions: 200 PO every 12 hours; Follow-up/Referrals: Walter,MD Merlin [Primary Care Provider, Unknown] - 3 Days Time of Disposition: 06:08
--- OUTSIDE RECORDS SUMMARY | 2025-08-01 06:14 | XMS_ITS | Clinical Summary ---
Author Organization [facility] Address [address] [place] [address] Care Team Providers Care Food And Beverage Operations Manager Name Role Phone Merlin Watson MD Primary Care Provider [phone] Geronimo Guerrero MD Unavailable [phone] Raheem Barksdale MD Unavailable [phone] August Bhakta DO Unavailable [phone] Allergies Active Allergy Reactions Criticality Noted Date Comments Gluten Other (See comments) Low 10/13/2021 Not verified Lactose Unknown 10/13/2021 Lactose Pantoprazole Sodium Rash Medium 06/24/2018 Sulfa (Sulfonamide Antibiotics) Unknown 01/26/2020 Sulfamethoxazole-Trimethop rim Itching,Unknown Low 05/20/2018 Rash Medications metFORMIN (GLUCOPHAGE) 500 mg tablet take 1 tablet by oral route every day with morning and evening meals 0 0 03/27/20 17 Active Additional Information Patient taking differently:500 mgoral Daily with breakfast, Reported on 01/23/2025 cyclobenzaprine (FLEXERIL) 5 mg tablet Take 2 tablets (10 mg total) by mouth 2 (two) times a day as needed for muscle spasms Take 5 mg BID and 10 mg at bedtime Active gabapentin (NEURONTIN) 300 mg capsule Take 800 mg by mouth 3 (three) times a day 05/04/20 18 Active ferrous sulfate 325 mg (65 mg of elemental iron) tabletIndications: Iron Deficiency Anemia Take 1 tablet (325 mg total) by mouth 2 (two) times a day Active hydrOXYzine (ATARAX) 25 mg tablet Take 0.5 tablets (12.5 mg total) by mouth 2 (two) times a day as needed for itching Active ALPRAZolam (XANAX) 1 mg tablet Take 1 tablet (1 mg total) by mouth 4 (four) times a day Active indomethacin (INDOCIN) 50 mg capsule Take 1 capsule (50 mg total) by mouth 2 (two) times a day with meals Active meloxicam (MOBIC) 7.5 mg tablet Take 1 tablet (7.5 mg total) by mouth daily 90 tablet 08/19/20 19 Active traMADol (ULTRAM) 50 mg tablet Take 1 tablet (50 mg total) by mouth every 8 (eight) hours as needed for pain 90 tablet 08/19/20 19 Active ergocalciferol (VITAMIN D2) 50,000 unit capsule Take 1 capsule (50,000 Units total) by mouth once a week 12 capsule 08/19/20 19 Active Additional Information Patient taking differently: 2,000 UnitsoralDaily, Reported on 10/17/2023 aspirin 81 mg enteric coated tablet Take 1 tablet (81 mg total) by mouth daily Active ezetimibe (ZETIA) 10 mg tablet Take 1 tablet (10 mg total) by mouth daily Active meclizine (ANTIVERT) 25 mg tablet Take 1 tablet (25 mg total) by mouth 3 (three) times a day as needed for dizziness Active busPIRone (BUSPAR) 5 mg tabletIndications: Generalized Anxiety Disorder Take 1 tablet (5 mg total) by mouth daily Active thyroid (ARMOUR THYROID) 15 mg tablet 3 tablets (45 mg total) Active lisinopriL (PRINIVIL,ZESTRIL) 10 mg tablet 10/24/20 21 Active midodrine (PROAMATINE) 2.5 mg tabletIndications: Symptomatic Orthostatic Hypotension TAKE 1 TABLET (2.5 MG TOTAL) BY MOUTH 2 (TWO) TIMES A DAY (MORNING AND MIDDAY) 180 tablet 09/14/20 23 Active linaCLOtide (LINZESS) 145 mcg capsule 1 capsule (145 mcg total) daily Active ondansetron ODT (ZOFRAN-ODT) 4 mg disintegrating tablet 09/21/20 23 Active modafiniL (PROVIGIL) 200 mg tablet Take 1 tablet (200 mg total) by mouth daily Active pravastatin (PRAVACHOL) 40 mg tablet Take 1 tablet (40 mg total) by mouth daily 30 tablet 6 10/17/20 23 Active clopidogreL (PLAVIX) 75 mg tablet TAKE 1 TABLET (75 MG TOTAL) BY MOUTH DAILY 90 tablet 3 11/27/19 24 Active Active Problems Problem Noted Date Diagnosed Date Abnormal PET scan of colon 01/16/2025 History of colon polyps 01/16/2025 History of breast cancer 01/16/2025 Statin myopathy 10/17/2023 Colon polyp 01/05/2023 Overview (01/05/2023): Added automatically from request for surgery [id number] History of syncope 03/30/2022 Localized edema 05/16/2021 Left-sided weakness 04/29/2021 Seizure disorder 02/01/2021 Hypersomnolence 11/11/2020 Carotid AV fistula 11/11/2020 Migraine with aura 07/15/2020 Polypharmacy 04/15/2020 Hypothyroidism 10/02/2019 TIA (transient ischemic attack) 08/28/2019 H/O: CVA (cerebrovascular accident) 08/28/2019 CVA (cerebral vascular accident) 07/17/2019 Other chest pain 05/13/2019 Irritable bowel syndrome with constipation 11/07 Orthostatic hypotension 10/16/2018 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 History of malignant neoplasm of breast 08/06/20 17 Anemia 06/21/2017 Diabetes mellitus 06/21/2017 Gout 06/21/2017 Thyroid nodule 06/21/2017 Mixed anxiety and depressive disorder 06/21/2017 Posttraumatic stress disorder 06/21/2017 Mixed hyperlipidemia 06/21/2017 Osteoarthritis 06/21/2017 Tachycardia 09/21/2016 Overview (03/01/2017): Tachycardia Intracranial tumor 09/21/2016 Overview (05/20/2018): Brain tumor Overview: Overview: Brain tumor Fibromyalgia 09/21/2016 Overview (05/20/2018): Fibromyalgia Overview: Overview: Fibromyalgia Cervicalgia 05/23/2016 Meningioma 05/23/2016 Post-mastectomy pain 03/29/2016 Acquired absence of both breasts 03/29/2016 Drug-induced hypokalemia 02/22/2016 Overview (03/01/2017): Diuretic-induced hypokalemia Obesity 01/26/2016 Steatosis of liver 01/26/2016 Hyperkalemia 12/16/2015 Dizziness 11/30/2015 Overview (03/01/2017): Dizziness Palpitations 11/30/2015 Overview (03/01/2017): Palpitations Paroxysmal supraventricular tachycardia 11/30/19 16 Overview (05/20/2018): PSVT (paroxysmal supraventricular tachycardia) Overview: Overview: PSVT (paroxysmal supraventricular tachycardia) Obesity with body mass index 30 or greater 11/30 Overview (03/01/2017): Obesity (BMI 30-39.9) Malignant neoplasm of right breast in female, estrogen receptor negative 11/30/2015 Overview (03/01/2017): Malignant neoplasm of female breast, unspecified laterality, unspecified site of breast Liver mass 08/04/2015 Resolved Problems Problem Noted Date Diagnosed Date Resolved Date Primary malignant neoplasm of breast 03/27/2017 06/17/2018 Overview (04/20/2017): Metastatic breast cancer Surgical History Surgery Date Site/Laterality Comments BIOPSY LIVER 08/11/2015 N/A US UNLISTED PROCEDURE LYMPH SYSTEM 01/26/2015 N/A BREAST SURGERY 11/26/2014 - 11/25/2015 SECTION 11/26/2013 - 11/25/2014 CHOLECYSTECTOMY 11/26/2005 - 11/25/2006 HYSTERECTOMY 11/26/2014 - 11/25/2015 BRAIN SURGERY 2015 2 Brain Mengianomas/Tumors COSMETIC SURGERY 2015 Bi Lateral Mastectomy SMALL INTESTINE SURGERY ERCP 2002 & 2003 ABDOMINAL SURGERY 2013 C Section Medical History Medical History Date Comments PSVT (paroxysmal supraventri cular tachycardia) Palpitations Anemia 2015 Anxiety 2015 Arthritis 2016 Asthma 2016 Osteoporosis 2018 Clotting disorder 2017 Meningitis 2016 Cancer (HCC) 2014 Depression 2015 Diabetes mellitus (HCC) 2014 Migraines 2015 Heart disease 2016 Hypertension 2015 Chronic kidney disease 2018 Neuromuscular disorder 2015 Seizures (HCC) 2016 Thyroid disease 2017 Brain concussion 08/2020 Stroke (HCC) 04/2019 2 strokes/ 3 TIAs Autoimmune disease 2017 (Numerous) Blindness 2019 Left eye periph ial vision lost after stroke Infection MSA 2017 Family History Medical History Relation Name Comments Hypertension Brother Uriel Velázquez Hypertension ; Obesity Brother Uriel Velázquez Brain cancer Father Vasquez Velázquez Brain Cancer, brain; Cause of : Cancer, brain Cancer Father Vasquez Velázquez Brain Arthritis Maternal Grandmother [facility] Brain Any[facility] Cancer Maternal Grandmother [facility] Stroke Maternal Grandmother [facility] Brain Any[facility] Alzheimer's disease Mother Deann Parr Anemia Mother Deann Parr Arthritis Mother Deann Parr Clotting disorder Mother Deann Parr Depression Mother Deann Parr Diabetes Mother Deann Parr Diabetes type II Mother Deann Parr Diabete s mellitus type 2; Heart disease Mother Deann Parr Heart dise ase; Hypertension Mother Deann Parr Memory loss Mother Deann Parr Obesity Mother Deann Parr Rashes / Skin problems Mother Deann Parr Alzheimer's disease Mother's Sister Bing Carter Cancer Paternal Grandfather Uriel [place] Brain Bleed/ Cancer Stroke Paternal Grandfather Uriel [place] Brain Bleed/ Cancer Alzheimer's disease Paternal Grandmother Juhi zaldivar Arthritis Paternal Grandmother Juhi Velázquez Memory loss Paternal Grandmother Juhi Velázquez Depression Sister Bettye Garcia Diabetes Sister Bettye Garcia Hearing loss Sister Bettye Garcia Hypertension Sister Bettye Garcia Hypertension; Kidney disease Sister Bettye Garcia Obesity Sister Bettye Garcia Relation Name Status Comments Brother Uriel Velázquez Father Vasquez Velázquez Brain (Age 51) Maternal Grandmother [facility] Brain Any[facility] Mother Deann Parr Mother's Sister Bing Carter Paternal Grandfather Uriel [place] Brain Bleed/ Cancer Paternal Grandmother Juhi Velázquez Sister Bettye Garcia Social History Tobacco Use Types Packs/Day Years Used Date Smoking Tobacco: Former Cigarettes Smokeless Tobacco: Never Comments:Social...only smoke d when drank. 1 pack per month. Alcohol Use Standard Drinks/Week Comments No 0 (1 standard drink = 0.6 oz pur e alcohol) AUDIT-C Answer Date Recorded Q1: How often do you have a drink containing alcohol? Never 01/23/2025 Q2: How many drinks containi ng alcohol do you have on a typical day when you are drinking? Patient does not drink Q3: How often do you have si x or more drinks on one occasion? Never 01/23/2025 PHQ-2 Answer Date Recorded PHQ-2 Total Score (If total score is 3 or more points, staff should administer the PHQ-9) 1 04/29/2021 Personal Safety Answer Date Recorded Have you ever been in or are you currently in a harmful physical or emotional relationship or is someone making you feel afraid or unsafe? Denies 01/23/2025 Comments No Sex and Gender Information Value Date Recorded Sex Assigned at Not on file Legal Sex Female 3:52 AM SENIOR FIRMWARE ENGINEER Gender Identity Female 08/26/2019 9:10 AM CDT Sexual Orientation Straight 08/26/2019 9: 10 AM CDT Occupation Industry Job Start Date Job End Date disabled Not on file Not on file Not on file Obstetrics History Last Filed Vital Signs Vital Sign Reading Time Taken Comments Blood Pressure 135/75 01/23/2025 8:30 AM SENIOR FIRMWARE ENGINEER Pulse 71 01/23/2025 8:30 AM SENIOR FIRMWARE ENGINEER Temperature 36.2 C (97.2 F) 01/23/2025 7:56 AM SENIOR FIRMWARE ENGINEER Respiratory Rate 14 01/23/2025 8:30 AM SENIOR FIRMWARE ENGINEER Oxygen Saturation 100% 01/23/2025 8:30 AM SENIOR FIRMWARE ENGINEER Inhaled Oxygen Concentration - - Weight 90.7 kg (200 lb) 01/23/2025 6:56 AM SENIOR FIRMWARE ENGINEER Height 175.3 cm (5' 9) 01/23/2025 6:56 AM SENIOR FIRMWARE ENGINEER Body Mass Index 29.53 01/23/2025 6:56 AM SENIOR FIRMWARE ENGINEER Plan of Treatment Health Maintenance Due Date Last Done Comments Albumin Creatinine Ratio, Urine 1974 Breast Cancer Screening-Mammogram 1974 Hepatitis C Screening 1974 eGFR 1974 Dilated Eye Exam 1974 Foot Exam 1974 Hepatitis B Screening 1992 Regular Well Visit/Exam 18-64 1992 Pneumococcal vaccine <65 (1 of 2 - PCV) 1993 Hemoglobin A1C 10/29/2021 04/29/2021, 01/10/2018 Depression Screening 04/28/2022 04/28/2021 Zoster Vaccine (1 of 2) 2024 Lipid Panel 02/18/2025 02/19/2024, 09/27, 05/16/2021, Additional history exists Influenza Vaccine (#1) 2025 6, 01/05/2015, 12/15/2014, Additional history exists DTaP/Tdap/Td Vaccine (2 - Td or Tdap) 11/28/2033 11/28/2023 Colon Cancer Screening-Colonoscopy 01/23/2035 01/23/2025, 01/22/2023, 04/24/2017 Procedures Procedure Name Priority Date/Time Associated Diagnosis Comments COLONOSCOPY 01/23/2025 7:20 AM SENIOR FIRMWARE ENGINEER POCT LIPID PANEL Routine 02/19/2024 2:12 PM CDT Mixed hyperlipidemia HEMOGLOBIN A1C Routine 04/29/2021 1:07 PM CDT from Last 3 Months or Most Recently Relevant to Health Maintenance Results * Colonoscopy (01/23/2025 7:20 AM SENIOR FIRMWARE ENGINEER) Anatomical Region Laterality Modality Other Narrative Procedure Note Matthew Witt MD - 01/23/2025 7:20 AM CST [facility] Patient Name: Vika Freeman Procedure Date: 01/23/2025 7:20 AM Date of : 1975 Admit Type: Outpatient Age: 49 Gender: Female Attending MD: Matthew Witt M.D. Room: [facility] ENDOSCOPY ROOM 02 Note Status: Finalized Procedure: Colonoscopy Indications: Personal history of malignant neoplasm of thebreast, Abnormal PET scan of the GI tract Referring MD: August Bhakta D.O. Providers: Matthew Witt M.D. Medicines: Propofol per Anesthesia Complications: No immediate complications. Estimated Blood Loss: Estimated blood loss: none. Procedure: Pre-Anesthesia Assessment: - After reviewing the risks and benefits, thepatient was deemed in satisfactory condition to undergo the procedure. - Immediately prior to administration ofmedications, the patient was re-assessed for adequacy to receive sedatives. The benefits, risks and alternatives of theprocedure and sedation were discussed and informed consentwas obtained. All questions were answered. Please referto the signed informed consent document in the medical record. The scope was passed under direct vision.The [id number] Colonoscope was introducedthrough the anus and advanced to the the cecum, identifiedby appendiceal orifice and ileocecal valve. The colonoscopy was performed without difficulty. The patient tolerated the procedure well. The qualityof the bowel preparation was good. The bowelpreparation used was SUPREP. Findings: The perianal and digital rectal examinations were normal. The colon (entire examined portion) appeared normal. Impression: - The entire examined colon is normal. - No specimens collected. Recommendation: - Repeat colonoscopy in 10 years for screening purposes. Electronically signed by Vimal Witt Matthew Witt M.D. 01/23/2025 7:56:38 AM Number of Addenda: 0 Note Initiated On: 01/23/2025 7:20 AM Recognized by the [place] [employer] for promoting quality in endoscopy Matthew Witt MD ENDOSCOPY PROCEDURES Final Res ult * POCT lipid panel (02/19/2024 2:12 PM CDT) Cholesterol, POC 227 mg/dL Comment:GLU = 107 HDL, POC 44 mg/dL Triglycerides, POC 306 mg/dL LDL Cholesterol POC 122 mg/dL Chol/HDL Ratio, POC 2.7 Non-HDL Cholesterol, POC 183 mg/dL Cholesterol Total, POC 227 mg/dL Capillary blood 02/19/2024 2 :12 PM CDT Raheem Barksdale MD POINT OF CARE TEST ORDER SHELLIE Final Result * (ABNORMAL) Hemoglobin A1c (04/29/2021 1:07 PM CDT) Hgb A1C 6.4(H) 4.0 - 5.6 % JOSE DAVID BARRETT Estimated Average Glucose 137 mg/dL JOSE DAVID BARRETT Comment: The ADA recommends reporting an estimated Average Glucose (eAG) with all Hemoglobin A1c results using the equation derived from a study of 507 normal and diabetic adults. Minority populations were underrepresented and children were not included. (Diabetes Care 2020; 43(S1): S66-S76). The eAG is not equivalent to a fasting glucose. Blood specimen (specimen) 04/29/2021 1:07 PM CDT 04/29/2021 1:28 PM CDT Matthew Wilhelm Jr., MD LAB BLOOD ORDERABL ES Final Result JOSE DAVID [facility]J [facility] Department [place] [address] from Last 3 Months or Most Recently Relevant to Health Maintenance Insurance [employer] MEDICARE [employer] MEDICARE [facility] Address: [address] [address] [facility] MEDICARE Advance Directives For more information, please contact: [phone] * Full Code (Latest Code Status on File) Date Activated Date Inactivated Comments 01/23/2025 6:49 AM 01/23/2025 12:51 PM * Full Code Date Activated Date Inactivated Comments 01/22/2023 9:08 AM 01/22/2023 3:39 PM Care Teams Food And Beverage Operations Manager Relationship Specialty Start Date End Date Merlin Watson MD [address] [facility] [place] [address] PCP - General 09/15/20 Geronimo Guerrero MD [address] [facility] [place] [address] Neurologist Neurology 04/29/21 Raheem Barksdale MD [address] [facility] [address] Consulting Physician Cardiology 01/01/23 August Bhakta DO [address] [place], [place] [address] Referring Physician Surgery 01/16/25
--- OUTSIDE RECORDS SUMMARY | 2025-08-01 06:14 | XMS_ITS | Encounter Summary ---
Author Organization [facility] Address [facility] [place] [address] Care Team Providers Care Bus Girl Name Role Phone Merlin Watson MD Primary Care Provider [phone] Encounter Details Date Type Department Care Team (Late st Contact Info) Description 05/23/2022 Hospital Follow-up Call [facility] 4th Floor Medical [address] [place] [address] Vika Matias, RN Social History Tobacco Use Types Packs/Day Years Used Date Smoking Tobacco: Never Smokeless Tobacco: Never Comments No Sex and Gender Information Value Date Recorded Sex Assigned at Female 12/30/2024 3:21 PM PHOTOGRAPHIC PLATEMAKER Legal Sex Female 11:21 PM CDT Gender Identity Not on file Sexual Orientation Not on file COVID-19 Exposure Response Date Recorded In the last 10 days, have yo u been in contact with someone who was confirmed or suspected to have Coronavirus/COVID-19? No / Unsure 05/16/2022 11:30 PM CDT documented as of this encounter Functional Status * RETIRED Are you deaf or do you have serious difficulty hearing Answer Date of Assessment Author Status No 05/17/2022 9:00 PM CDT Activ e * RETIRED Are you blind or do you have serious difficulty seeing, even when wearing glasses? Answer Date of Assessment Author Status No 05/17/2022 9:00 PM CDT Activ e * Do you have serious difficulty walking or climbing stairs? Answer Date of Assessment Author Status No 05/17/2022 9:00 PM Telma Reina RN Active * Do you have difficulty dressing or bathing? Answer Date of Assessment Author Status No 05/17/2022 9:00 PM Telma Reina RN Active * Because of a physical, mental, or emotional condition, do you have difficulty doing errands alone such as visiting a doctor's office or shopping? Answer Date of Assessment Author Status No 05/17/2022 9:00 PM Telma Reina RN Active documented as of this encounter Mental Status * Because of a physical, mental, or emotional condition, do you have serious difficulty concentrating, remembering, or making decisions? Answer Entry Date Author Status No 05/17/2022 9:00 PM Telma Reina RN Active documented in this encounter Plan of Treatment Not on file documented as of this encounter Visit Diagnoses Not on filedocumented in this encounter Care Teams Bus Girl Relationship Specialty Start Date End Date Merlin Watson MD PCP - General FAMILY PRACTICE 09/23/19 documented as of this encounter
--- OUTSIDE RECORDS SUMMARY | 2025-08-01 06:14 | XMS_ITS | Clinical Summary ---
Author Organization [facility] Address [address] [place] [address] Phone Care Team Providers Care Automotive Machinist Name Role Phone Jorge Alberto Syed MD Primary Care Provider [phone] Allergies Active Allergy Reactions Criticality Noted Date Comments Sulfamethoxazole-Trimethoprim Itching 2017 Rash Pantoprazole Sodium Rash 06/24/2018 Medications ALPRAZolam (XANAX) 1 MG Tablet Take 1 mg by mouth 3 times daily as needed. 2 8 Active phentermine 30 MG Capsule Take 30 mg by mouth daily. 0 8 Active traMADol (ULTRAM) 50 MG Tablet Take 100 mg by mouth 3 times daily. 5 8 Active ergocalciferol (VITAMIN D) 51081 UNIT Capsule Take 50,000 Units by mouth once a week. Active traZODone (DESYREL) 100 MG Tablet Take 200 mg by mouth nightly. Active Vit-Fe Fumarate-FA ( VITAMIN PO) Take 1 Tab by mouth daily. Active diphenhydrAMINE (BENADRYL) 25 MG Capsule Take 50 mg by mouth nightly as needed. Active cyclobenzaprine (FLEXERIL) 10 MG Tablet Take 10 mg by mouth 3 times daily as needed. Active erythromycin base (E-MYCIN) 500 MG Tablet Take 500 mg by mouth as needed. Active lisinopril (PRINIVIL, ZESTRIL) 10 MG Tablet Take 10 mg by mouth daily. Active metFORMIN (GLUCOPHAGE-XR) 500 MG TABLET SR 24 HR Take 500 mg by mouth daily. This RX is for Metformin SR. Active meloxicam (MOBIC) 7.5 MG Tablet Take 7.5 mg by mouth daily. Active Vortioxetine HBr (TRINTELLIX) 10 MG Tablet Take 10 mg by mouth daily. Active allopurinol (ZYLOPRIM) 300 MG Tablet Take 300 mg by mouth daily. Active promethazine (PHENERGAN) 25 MG Tablet Take 25 mg by mouth daily. Active prazosin (MINIPRESS) 1 MG Capsule Take 3 mg by mouth nightly. Active lubiprostone (AMITIZA) 24 MCG Capsule Take 24 mcg by mouth daily. 8 Active midodrine (PROAMATINE) 10 MG Tablet Take by mouth 3 times daily (before meals). Active Cholecalciferol (VITAMIN D-3 PO) Take 4,000 Units by mouth daily. Active GABAPENTIN PO Take 900 mg by mouth 3 times daily. Active atorvastatin (LIPITOR) 10 MG Tablet Take 10 mg by mouth daily. Active Calcium Carbonate-Vit D-Min (CALCIUM 1200 PO) Take 2,400 mg by mouth daily. Active Family History Medical History Relation Name Comments No Known Problems Brother Other-comment Father brain tumor of 2 types Stroke Maternal Grandfather Diabetes Mother Heart Disease Mother High Cholesterol Mother Hypertension Mother Other-comment Mother blood coagulat ion disorder, myasthenia gravis, pre-cancerous cell of cervix High Cholesterol Sister Hypertension Sister Other-comment Sister Fibromyalgia Relation Name Status Comments Brother Alive Father Maternal Grandfather Mother Alive Sister Alive Social History Tobacco Use Types Packs/Day Years Used Date Smoking Tobacco: Former Cigarettes 0 07/04/1991 - 07/04/2007 Smokeless Tobacco: Never Tobacco Cessation:Counseling Given: No Comments No Sex and Gender Information Value Date Recorded Sex Assigned at Not on file Legal Sex Female 1:22 PM LOADING UNIT TOOL SETTER Gender Identity Not on file Sexual Orientation Not on file Last Filed Vital Signs Vital Sign Reading Time Taken Comments Blood Pressure 132/68 07/04/2018 4:17 PM CDT Pulse 120 07/04/2018 4:17 PM CDT Temperature 36.7 C (98.1 F) 07/04/2018 4:17 PM CDT Respiratory Rate 16 07/04/2018 4:17 PM CDT Oxygen Saturation 97% 07/04/2018 4:17 PM CDT Inhaled Oxygen Concentration - - Weight 109.3 kg (241 lb) 07/04/2018 4:17 PM CDT Height 175.3 cm (5' 9) 07/04/2018 4:17 PM CDT Body Mass Index 35.59 07/04/2018 4:17 PM CDT Plan of Treatment Health Maintenance Due Date Last Done Comments Hepatitis C Virus (HCV) Screening 1975 TdaP Immunization 1974 Hepatitis B Immunization (1 of 3 - 19+ 3-dose series) 1993 Cologuard 2019 Colonoscopy 2019 Colorectal Cancer Screening 2019 Immunochemical Fecal Occult Blood 2019 Pneumococcal Immunization (5 0+ years) (1 of 1 - PCV) 2024 Zoster Immunization (1 of 2) 2024 Influenza Immunization (#1) 2025 10/04/2016 SARS-COV-2 Immunization (1 - 2023- season) 2025 Respiratory Syncytial Virus (RSV) Immunization (Adult) (1 - 1-dose 75+ series) 2049 Human Papillomavirus (HPV) Immunization Aged Out No longer eligible b ased on patient's age to complete this topic Meningococcal Immunization (ACWY) Aged Out No longer eligible based on patient's age to complete this topic Rotavirus Immunization Aged Out No lo nger eligible based on patient's age to complete this topic Insurance Care Teams Automotive Machinist Relationship Specialty Start Date End Date Jorge Alberto Syed MD [address] [place] [address] PCP - General Family Medicine 06/26/18
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
--- OUTSIDE RECORDS SUMMARY | 2025-08-01 06:14 | XMS_ITS | Encounter Summary ---
Author Organization [facility] Address [address] [place] [address] Phone Care Team Providers Care Bagel Maker Name Role Phone Merlin Watson MD Primary Care Provider Merlin Watson MD Primary Care Provider [phone] Merlin Watson MD Primary Care Provider [phone] Merlin Watson MD Primary Care Provider [phone] Geronimo Guerrero MD Unavailable Raheem Barksdale MD Unavailable [phone] August Bhakta DO Unavailable [phone] Encounter Details Date Type Department Care Team (Latest Contact Info) Description 11/04/2018 Orders Only [facility] Scanning, Provider Social History Tobacco Use Types Packs/Day Years Used Date Smoking Tobacco: Former Smokeless Tobacco: Never Alcohol Use Standard Drinks/Week Comments No 0 (1 standard drink = 0.6 oz pur e alcohol) Comments Unknown Sex and Gender Information Value Date Recorded Sex Assigned at Not on file 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 Gender Identity Female 08/26/2019 9:10 AM CDT Sexual Orientation Straight 08/26/2019 9: 10 AM CDT Occupation Industry Job Start Date Job End Date disabled Not on file Not on file Not on file documented as of this encounter Plan of Treatment Not on file documented as of this encounter Procedures Procedure Name Priority Date/Time Associated Diagnosis Comments SCAN - RADIOLOGY/IMAGING 11/04/2018 documented in this encounter Results * SCAN - RADIOLOGY/IMAGING (11/04/2018) Anatomical Region Laterality Modality Other Provider Scanning Final Result documented in this encounter Visit Diagnoses Not on filedocumented in this encounter Care Teams Bagel Maker Relationship Specialty Start Date End Date Merlin Watson MD [address] [place], [place] [id number] PCP - General [place] [employer] Member 04/10/18 05/12/19 Merlin Watson MD [address] [address] PCP - General Family Medicine 05/13/19 05/27/19 Merlin Watson MD [address] [place], [place] [id number] PCP - General 05/28/19 09/14/20 Merlin Watson MD [address] [facility] [place] [address] PCP - General 09/15/20 Geronimo Guerrero MD [address] [facility] [place], [place] [address] Neurologist Neurology 04/29/21 Raheem Barksdale MD [address] [facility] [place], [place] [address] Consulting Physician Cardiology 01/01/23 August Bhakta DO [address] [place] [address] Referring Physician Surgery 01/16/25 documented as of this encounter
--- OUTSIDE RECORDS SUMMARY | 2025-08-01 06:14 | XMS_ITS ---
Author Organization [facility] Address [address] [place] [address] Care Team Providers Care Manager Creative Services Name Role Phone Merlin Watson MD Primary Care Provider [phone] Geronimo Guerrero MD Unavailable [phone] Raheem Barksdale MD Unavailable [phone] August Bhakta DO Unavailable [phone] Active Problems Problem Noted Date Diagnosed Date Abnormal PET scan of colon 01/16/2025 History of colon polyps 01/16/2025 History of breast cancer 01/16/2025 Statin myopathy 10/17/2023 Colon polyp 01/05/2023 Overview (01/05/2023): Added automatically from request for surgery [id number] History of syncope 03/30/2022 Localized edema 05/16/2021 [...] unspecified site of breast Liver mass 08/04/2015 Current Treatment and Therapy Plans No current plan information found. Past Treatment and Therapy Plans No past plan information found. Lifetime Dose Tracking * Chemical Lifetime Dose Automatic Entry Manual Entr y DLP 2,410 mGycm 2,410 mGycm 0 mGycm Resolved Problems Problem Noted Date Diagnosed Date Resolved Date Primary malignant neoplasm of breast 03/27/2017 06/17/2018 Overview (04/20/2017): Metastatic breast cancer
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
--- OUTSIDE RECORDS SUMMARY | 2025-08-01 06:14 | XMS_ITS | Clinical Summary ---
Author Organization [facility] Address [address] [place] [address] Care Team Providers Care Lock Maintenance Supervisor Name Role Phone Merlin Watson Unavailable Unavailable Merlin Watson Primary Care Provider Unavailab le Source Comments [facility],non-owned Affiliates and Associated Physician Practices is amultiple site organization consisting of ambulatory clinics and hospital sitesin [place], [place], [place] and [place]. This disclosure is being madepursuant to the Care Everywhere program and may not contain all information available regarding this patient. Last updated 18.[facility] Allergies Active Allergy Reactions Criticality Noted Date Comments Sulfamethoxazole W-Trimethoprim Unknown 12/2019 Pantoprazole Sodium Rash Medium 06/24/2018 Sulfa Drugs Unknown 01/26/2020 Sulfamethoxazole W-Trimethoprim Itching Low 04/27 Medications * Be aware that medications may not be up to date on this document. Alwaysverify current medications with the patient. diphenhydrAMINE (BENADRYL) 25 MG capsule Take by mouth as needed Active metFORMIN ER 24hr (GLUCOPHAGE XR) 500 MG tablet Take 500 mg by mouth 7 Active prazosin (MINIPRESS) 1 MG capsule Take 3 mg by mouth Active meloxicam (MOBIC) 7.5 MG tablet Take 1 Tab by mouth 7 Active Calcium Citrate-Vitamin D (CALCIUM + D PO) Take 1,000 mg by mouth Active vitamin D, ergocalciferol, (DRISDOL) 16401 UNITS capsule Take 1 Cap by mouth Active erythromycin base EC (ARIANNA-TAB) 500 MG tabletIndicatio ns:Adenoma of liver Take 500 mg by mouth 3 times daily Active promethazine (PHENERGAN) 25 MG tabletIndicatio ns:Adenoma of liver Take 25 mg by mouth every 6 hours as needed for Nausea/Vomitin g Active MV-Min-Fe Fum-FA-DHA ( 1 PO) Take by mouth once daily Active ALPRAZolam (XANAX) 1 MG tablet 1 mg 4 times daily 8 Active busPIRone (BUSPAR) 10 MG tablet Take 10 mg by mouth Active Blood Glucose Monitoring Suppl (ONE TOUCH ULTRA 2) W/DEVICE KIT 8 Active Ergocalciferol (VITAMIN D2 PO) Take 5,000 Units by mouth once daily Active cyclobenzaprine (FLEXERIL) 5 MG tablet 2 times daily 8 Active ferrous sulfate 325 (65 FE) MG tablet Take by mouth 2 times daily with morning and evening meal Active BookerTOTingz ULTRA TEST STRIPS test strip 8 Active hydrOXYzine hcl (ATARAX) 25 MG tablet Take 12.5 mg by mouth as needed Active ONETOUCH DELICA LANCETS 33G MISC 8 Active lidocaine (LIDODERM) 5 % patch 8 Active lisinopril (PRINIVIL; ZESTRIL) 10 MG tablet 10 mg once daily 8 Active meclizine (ANTIVERT) 25 MG tablet Take 25 mg by mouth Active prazosin (MINIPRESS) 2 MG capsule Take 3 mg by mouth 8 Active midodrine (PROAMATINE) 10 MG tablet Active traZODone (DESYREL) 100 MG tablet 200 mg 8 Active pregabalin (LYRICA) 150 MG capsule Take 75 mg by mouth Active Docosahexaenoic Acid ( DHA PO) Active TRINTELLIX 5 MG tablet Take 5 mg by mouth once daily 8 Active LINZESS 290 MCG capsule 8 Active albuterol (PROVENTIL) 2 MG tablet Take 2 mg by mouth as needed Active cephalexin (KEFLEX) 250 MG capsule Take by mouth once daily Active omeprazole (PRILOSEC) 40 MG capsule TAKE ONE CAPSULE BY MOUTH ONCE DAILY 30 capsule 2 9 Active clopidogrel (PLAVIX) 75 MG tablet 9 Active cyclobenzaprine (FLEXERIL) 10 MG tablet at bedtime 9 Active gabapentin (NEURONTIN) 800 MG tablet 3 times daily 9 Active midodrine (PROAMATINE) 5 MG tablet 9 Active naproxen (NAPROSYN) 500 MG tablet 9 Active traMADol (ULTRAM) 50 MG tablet every 8 hours as needed 9 Active aspirin (ASPIRIN) 81 MG tablet Take 81 mg by mouth once daily Active modafinil (PROVIGIL) 100 MG tablet Take 100 mg by mouth every morning Active atorvastatin (LIPITOR) 20 MG tablet Take 20 mg by mouth at bedtime Active Dronabinol (MEDICAL MARIJUANA) as needed Active ARIPiprazole (ABILIFY) 2 MG tablet Take by mouth once daily Active allopurinol (ZYLOPRIM) 100 MG tablet Take 400 mg by mouth once daily Active indomethacin (INDOCIN) 50 MG capsule Take 50 mg by mouth 2 times daily Active metroNIDAZOLE (FLAGYL) 500 MG tablet Take 500 mg by mouth 2 times daily Active lubiprostone (AMITIZA) 24 MCG capsule Take 24 mcg by mouth daily with breakfast Active Active Problems Problem Noted Date Diagnosed Date Adenoma of liver 05/27/2018 Vasovagal syncope 04/10/2018 Gastroparesis 09/10/2017 Overview (06/13/2018): Overview: Moderate delayed gastric emptying based on 28% retention at 4 hours after ingestion of meal. History of malignant neoplasm of breast 08/06/20 17 Primary malignant neoplasm of breast 03/27/2017 Overview (06/24/2018): Overview: Metastatic breast cancer Fibromyalgia 09/21/2016 Overview (06/13/2018): Overview: Overview: Fibromyalgia Intracranial tumor 09/21/2016 Overview (06/13/2018): Overview: Brain tumor Overview: Overview: Brain tumor Overview: Overview: Brain tumor Tachycardia 09/21/2016 Overview (06/24/2018): Overview: Tachycardia Cervicalgia 05/23/2016 Meningioma 05/23/2016 Acquired absence of both breasts 03/29/2016 Post-mastectomy pain 03/29/2016 Drug-induced hypokalemia 02/22/2016 Overview (06/13/2018): Overview: Diuretic-induced hypokalemia Obesity 01/26/2016 Steatosis of liver 01/26/2016 Hyperkalemia 12/16/2015 Dizziness 11/30/2015 Overview (06/13/2018): Overview: Dizziness Overview: Overview: Dizziness Malignant neoplasm of female breast 11/30/2015 Overview (06/24/2018): Overview: Malignant neoplasm of female breast, unspecified laterality, unspecified site of breast Overview: Overview: Malignant neoplasm of female breast, unspecified laterality, unspecified site of breast Obesity with body mass index 30 or greater 11/30 Overview (06/24/2018): Overview: Obesity (BMI 30-39.9) Palpitations 11/30/2015 Overview (06/24/2018): Overview: Palpitations Paroxysmal supraventricular tachycardia 11/30/19 16 Overview (06/24/2018): Overview: PSVT (paroxysmal supraventricular tachycardia) Overview: Overview: PSVT (paroxysmal supraventricular tachycardia) Overview: Overview: PSVT (paroxysmal supraventricular tachycardia) Liver mass 05/23/2012 Visual field defect of left eye Resolved Problems Problem Noted Date Diagnosed Date Resolved Date Constipation 06/13/2018 07/11/2018 Family History Medical History Relation Name Comments Cancer - Other Father brain Diabetes - Type 2 Mother Hypertension Sister Relation Name Status Comments Father Mother Sister Social History Tobacco Use Types Packs/Day Years Used Date Smoking Tobacco: Former Smokeless Tobacco: Never Comments:over 15 years quit Alcohol Use Standard Drinks/Week Comments No 0 (1 standard drink = 0.6 oz pur e alcohol) Comments No Sex and Gender Information Value Date Recorded Sex Assigned at Not on file Legal Sex Female 11:52 AM CDT Gender Identity Not on file Sexual Orientation Not on file Last Filed Vital Signs Vital Sign Reading Time Taken Comments Blood Pressure 128/81 01/26/2020 6:58 PM TRUANT OFFICER Pulse 76 01/26/2020 6:58 PM TRUANT OFFICER Temperature 36.1 C (97 F) 01/26/2020 4:31 PM TRUANT OFFICER Respiratory Rate 13 01/26/2020 6:58 PM TRUANT OFFICER Oxygen Saturation 97% 01/26/2020 6:58 PM TRUANT OFFICER Inhaled Oxygen Concentration - - Weight 120.7 kg (266 lb 1.5 oz) 01/26/2020 4:31 PM TRUANT OFFICER Height 175.3 cm (5' 9) 01/26/2020 5:29 PM TRUANT OFFICER Body Mass Index 39.3 08/19/2019 2:36 PM CDT Plan of Treatment Health Maintenance Due Date Last Done Comments COLOGUARD (AGES 45-75) - COL ON CA SCREENING 1974 COLON MONITORING 1974 COLONOSCOPY - COLON CA SCREENING 1974 CT COLONOGRAPHY - COLON CA SCREENING 1974 Colorectal Cancer Screening 1974 FIT - COLON CA SCREENING 1974 FLEX SIG - COLON CA SCREENING 1974 MAMMOGRAM 1974 HIV SCREENING 1989 HEPATITIS C SCREENING 04/06/1992 DTAP/TDAP/TD VACCINES (1 - Tdap) 1993 HEPATITIS B VACCINE (1 of 3 - 19+ 3-dose series) 1993 SCREENING FOR DIABETES 01/25/2023 0, 01/26/2020, 01/10/2018 PNEUMOCOCCAL VACCINE 50+ (1 of 1 - PCV) 2024 ZOSTER VACCINE (1 of 2) 2024 DEPRESSION SCREENING 11/26/2024 COVID-19 VACCINE ( - 2023-2 5 season) 2025 INFLUENZA VACCINE (#1) 2025 HIB VACCINE Aged Out No longer eligi ble based on patient's age to complete this topic HPV VACCINE Aged Out No longer eligi ble based on patient's age to complete this topic MENINGOCOCCAL (Group B) VACCINE SHARED DECISION-MAKING Aged Out No longer eligible based on patient's age to complete this topic MENINGOCOCCAL GROUPS A/C/Y/W VACCINE Aged Out No longer eligible b ased on patient's age to complete this topic Goals Goal Patient Goal Type Associated Problems Recent Progress Patient-Stated? Author Medication Management General On track( 2:46 PM CDT) No Liana Hoyt RN Note: Expected end date: Ongoing Interventions: Take all medications as prescribed Let your doctor know right away about any changes in your medications Make sure to request a refill of your medication at least one week prior to your last dose Safety General On track( 019 2:46 PM CDT) No Liana Hoyt RN Note: Expected end date: Ongoing Interventions: Your nurse will assess your risk for falls/injury each visit Make sure appropriate safety devices are available and within reach Review the fall prevention instruction sheet given to you during your visit Procedures Procedure Name Priority Date/Time Associated Diagnosis Comments COMPREHENSIVE METABOLIC PANEL STAT 01/26/2020 5:00 PM TRUANT OFFICER from Last 3 Months or Most Recently Relevant to Health Maintenance Results * (ABNORMAL) COMPREHENSIVE METABOLIC PANEL (01/26/2020 5:00 PM TRUANT OFFICER) BUN 12 7 - 26 mg/dL 01/26/2020 5:34 PM [facility] Creatinine 0.7 0.6 - 1.2 mg/dL 01/26/2020 5:34 PM [facility] Sodium 142 136 - 145 mmol/L 01/26/2020 5:34 PM [facility] Potassium 3.7 3.5 - 4.5 mmol/L 01/26/2020 5:34 PM [facility] Chloride 110(H) 98 - 107 mmol/L 01/26/2020 5:34 PM [facility] CO2 23 22 - 29 mmol/L 01/26/2020 5:34 PM [facility] Glucose 111 70 - 115 mg/dL 01/26/2020 5:34 PM [facility] Calcium 8.4 8.4 - 10.2 mg/dL 01/26/2020 5:34 PM [facility] Protein Total 5.8(L) 6.0 - 8.3 g/dL 01/26/2020 5:34 PM [facility] Albumin 3.4 3.4 - 5.0 g/dL 01/26/2020 5:34 PM [facility] Bilirubin Total 0.3 0.2 - 1.2 mg/dL 01/26/2020 5:34 PM [facility] Alkaline Phosphatase 112 40 - 150 Units/L 01/26/2020 5:34 PM [facility] ALT 28 0 - 55 Units/L 01/26/2020 5:34 PM [facility] AST 17 5 - 34 Units/L 01/26/2020 5:34 PM [facility] Anion Gap 13 8 - 18 01/26/2020 5:34 PM [facility] BUN/Creatinine Ratio 17 7 - 23 01/26/2020 5:34 PM [facility] Osmolality Calculated 294 270 - 300 mOsm/kg 01/26/2020 5:34 PM [facility] Albumin/Globulin Ratio 1.4 1.1 - 2.3 01/26/2020 5:34 PM [facility] eGFR >60 >60 mL/min/1.7 3 m2 01/26/2020 5:34 PM [facility] Blood BLOOD SPECIMEN / Unknown Venipuncture / Unknown 01/26/2020 5:00 PM TRUANT OFFICER 01/26/2020 5:09 PM [facility] us Delores Mcmullen MD LAB - CHEMISTRY ORDERABLES Fin al Result Performing Organization Address [facility]/State/[facility] Co de Phone Number [facility] [address] [place] [address] from Last 3 Months or Most Recently Relevant to Health Maintenance Insurance [employer] MEDICARE [employer] MEDICARE [facility] Care Teams Lock Maintenance Supervisor Relationship Specialty Start Date End Date Merlin Watson Update Information PCP - General 01/28/20 Merlin Watson Update Information 01/26/20
--- OUTSIDE RECORDS SUMMARY | 2025-08-01 06:14 | XMS_ITS ---
Author Organization [facility] Address [address] [place] [address] Care Team Providers Care Product Trainer Name Role Phone Merlin Watson Unavailable Unavailable Merlin Watson Primary Care Provider Unavailab le Active Problems Problem Noted Date Diagnosed Date [...] 05/23/2012 Visual field defect of left eye Current Treatment and Therapy Plans No current plan information found. Past Treatment and Therapy Plans No past plan information found. Lifetime Dose Tracking * Chemical Lifetime Dose Automatic Entry Manual Entr y Dose Length Product 2,059 mGy-cm 2,059 mGy-cm 0 mGy-cm Resolved Problems Problem Noted Date Diagnosed Date Resolved Date Constipation 06/13/2018 07/11/2018
[2025-08-01 06:42] VITALS: BP 105/78; PULSE 77; RESP 12; O2SAT 97
== END 2025-08-01 06:37 | disposition home or self-care (01) ==
PROVIDERS: Emergency Provider Emergency Medicine; PCP Family Medicine
DX: Z04.89 Encounter for examination and observation for other specified reasons (principal); I10 Essential (primary) hypertension; E03.9 Hypothyroidism, unspecified; E11.9 Type 2 diabetes mellitus without complications; M10.9 Gout, unspecified; G47.9 Sleep disorder, unspecified; F41.8 Other specified anxiety disorders; Z85.3 Personal history of malignant neoplasm of breast; Z86.16 Personal history of COVID-19; Z90.13 Acquired absence of bilateral breasts and nipples; Z90.49 Acquired absence of other specified parts of digestive tract; Z79.82 Long term (current) use of aspirin; Z79.899 Other long term (current) drug therapy; Z79.84 Long term (current) use of oral hypoglycemic drugs
CPT/HCPCS: 99283

== ENCOUNTER 2025-10-16 11:00 | Outpatient (CLI) | payer BC, MEDICARE, SELFPAY ==
--- OUTSIDE RECORDS SUMMARY | 2024-08-12 09:00 | XMS_ITS ---
Author Organization [facility] As Message [employer]ile Address [address] [facility] [address] [place] [address] Care Team Providers Care Nurse Staff Name Role Phone Walter ANSARI, [facility] Primary Care Provider Obi Back Unavailable [phone] REASON FOR VISIT Telehealth Medications Medication SIG (Take, Route, Frequency, Duration) Notes Start Date End Date Status ALPRAZolam 1 MG Tablet 1 tablet Oral four times a day; Duration: 30 days As needed 06/03/2024 Active Gabapentin 800 MG Tablet Oral 02/26/2024 Active Cefadroxil 500 MG Capsule Oral 02/26/2024 Active Ciprofloxacin HCl 500 MG Tablet Oral 02/26/2024 Active Clopidogrel Bisulfate 75 MG Tablet Oral 02/26/2024 Active Ergocalciferol 1.25 MG (5000 0 UT) Capsule Oral 02/26/2024 Active Promethazine HCl 25 MG Tablet Oral 02/26/2024 Active hydrOXYzine HCl 25 MG Tablet Oral 02/26/2024 Active Cyclobenzaprine HCl 5 MG Tablet Oral 02/26/2024 Active Modafinil 100 MG Tablet Oral 02/26/2024 Active Allopurinol 300 MG Tablet Oral 02/26/2024 Active Ondansetron 4 MG Tablet Disintegrating Oral 02/26/2024 Active Lisinopril 10 MG Tablet Oral 02/26/2024 Active metFORMIN HCl ER 500 MG Tablet Extended Release 24 Hour Oral 02/26/2024 Active Cyclobenzaprine HCl 10 MG Tablet Oral 02/26/2024 Active Midodrine HCl 5 MG Tablet Oral 02/26/2024 Active [place] Thyroid 60 MG Tablet Oral 02/26/2024 Active Atorvastatin Calcium 20 MG Tablet Oral 02/26/2024 Active Indomethacin 50 MG Capsule Oral 02/26/2024 Active Ferrous Sulfate 325 (65 Fe) MG Tablet Oral 02/26/2024 Active Midodrine HCl 2.5 MG Tablet Oral 02/26/2024 Active [place] Thyroid 15 MG Tablet Oral 02/26/2024 Active Armodafinil 250 mg Tablet Oral 02/26/2024 Active Meloxicam 7.5 MG Tablet Oral 02/26/2024 Active Atorvastatin Calcium 40 MG Tablet Oral 02/26/2024 Active Gabapentin 600 MG Tablet Oral 02/26/2024 Active Lidocaine 5% Patch External 02/26/2024 Active Linzess 72 mcg Capsule Oral 02/26/2024 Active Linzess 290 MCG Capsule Oral 02/26/2024 Active traMADol HCl 50 MG Tablet Oral 02/26/2024 Active Pravastatin Sodium 40 MG Tablet Oral 02/26/2024 Active Cephalexin 500 MG Capsule Oral 02/26/2024 Active Pregabalin 150 MG Capsule Oral 02/26/2024 Active Gabapentin 300 MG Capsule Oral 02/26/2024 Active Erythromycin Base 500 MG Tablet Oral 02/26/2024 Active Social History Sex Assigned At : Social History Observation Description Sex Assigned At Female Encounters Encounter [facility] [address] [address] 08/12/2024 Obi Byrnes Plan Of Treatment No Information Progress Notes * MADY ANGUIANO SDOB: [birth year] (50 yo F)Acc No.[id number]:08/12/2024 Patient: MADY BOURGEOIS Provider: ASHWIN DUNAWAY :1975 A ge:49 Y S ex:Female Date:08/12/2024 Phone: Address:[address] [place] [id number] Pcp:Merlin Watson MD Subjective: * Chief Complaints: * T [facility] * Medications: T akingCefadroxil 500 MG Capsule Oral Ciprofloxacin HCl 500 MG Tablet Oral Pravastatin Sodium 40 MG Tablet Oral Pregabalin 150 MG Capsule Oral Cephalexin 500 MG Capsule Oral Erythromycin Base 500 MG Tablet Oral Gabapentin 300 MG Capsule Oral Linzess 72 mcg Capsule Oral Lidocaine 5% Patch External traMADol HCl 50 MG Tablet Oral Linzess 290 MCG Capsule Oral Gabapentin 600 MG Tablet Oral Midodrine HCl 2.5 MG Tablet Oral Armodafinil 250 mg Tablet Oral [place] Thyroid 15 MG Tablet Oral Atorvastatin Calcium 40 MG Tablet Oral Meloxicam 7.5 MG Tablet Oral [place] Thyroid 60 MG Tablet Oral Midodrine HCl 5 MG Tablet Oral Atorvastatin Calcium 20 MG Tablet Oral Ferrous Sulfate 325 (65 Fe) MG Tablet Oral Indomethacin 50 MG Capsule Oral Ondansetron 4 MG Tablet Disintegrating Oral Allopurinol 300 MG Tablet Oral metFORMIN HCl ER 500 MG Tablet Extended Release 24 Hour Oral Lisinopril 10 MG Tablet Oral Cyclobenzaprine HCl 10 MG Tablet Oral Ergocalciferol 1.25 MG (23274 UT) Capsule Oral hydrOXYzine HCl 25 MG Tablet Oral Promethazine HCl 25 MG Tablet Oral Cyclobenzaprine HCl 5 MG Tablet Oral Modafinil 100 MG Tablet Oral Clopidogrel Bisulfate 75 MG Tablet Oral Gabapentin 800 MG Tablet Oral ALPRAZolam 1 MG Tablet 1 tablet Oral four times a day As neededTaking Cefadroxil 500 MG Capsule Oral Taking Ciprofloxacin HCl 500 MG Tablet Oral Taking Pravastatin Sodium 40 MG Tablet Oral Taking Pregabalin 150 MG Capsule Oral Taking Cephalexin 500 MG Capsule Oral Taking Erythromycin Base 500 MG Tablet Oral Taking Gabapentin 300 MG Capsule Oral Taking Linzess 72 mcg Capsule Oral Taking Lidocaine 5% Patch External Taking traMADol HCl 50 MG Tablet Oral Taking Linzess 290 MCG Capsule Oral Taking Gabapentin 600 MG Tablet Oral Taking Midodrine HCl 2.5 MG Tablet Oral Taking Armodafinil 250 mg Tablet Oral Taking [place] Thyroid 15 MG Tablet Oral Taking Atorvastatin Calcium 40 MG Tablet Oral Taking Meloxicam 7.5 MG Tablet Oral Taking [place] Thyroid 60 MG Tablet Oral Taking Midodrine HCl 5 MG Tablet Oral Taking Atorvastatin Calcium 20 MG Tablet Oral Taking Ferrous Sulfate 325 (65 Fe) MG Tablet Oral Taking Indomethacin 50 MG Capsule Oral Taking Ondansetron 4 MG Tablet Disintegrating Oral Taking Allopurinol 300 MG Tablet Oral Taking metFORMIN HCl ER 500 MG Tablet Extended Release 24 Hour Oral Taking Lisinopril 10 MG Tablet Oral Taking Cyclobenzaprine HCl 10 MG Tablet Oral Taking Ergocalciferol 1.25 MG (47901 UT) Capsule Oral Taking hydrOXYzine HCl 25 MG Tablet Oral Taking Promethazine HCl 25 MG Tablet Oral Taking Cyclobenzaprine HCl 5 MG Tablet Oral Taking Modafinil 100 MG Tablet Oral Taking Clopidogrel Bisulfate 75 MG Tablet Oral Taking Gabapentin 800 MG Tablet Oral Taking ALPRAZolam 1 MG Tablet 1 tablet Oral four times a day As needed * Electronic signature of ASHWIN Garzon on 10/16/2025 at 11:05 AM HUMAN RESOURCES BENEFITS ASSISTANT Sign off status: Pending * Provider: ASHWIN DUNAWAY Date: 0 08/12/2024 Generated for Ezra gautam/Eduardo/Bear on: 1 12/16/2024 11:05 AM HUMAN RESOURCES BENEFITS ASSISTANT
--- OUTSIDE RECORDS SUMMARY | 2025-03-03 07:45 | XMS_ITS ---
Author Organization [facility] Address [facility] [address] [address] Care Team Providers Care Medical Services Coordinator Name Role Phone Walter ANSARI, [facility] Primary Care Provider Obi Back Unavailable [phone] REASON FOR VISIT R/S-pt got the wrong address Social History Sex Assigned At : Social History Observation Description Sex Assigned At Female Encounters Encounter Location Date Provider Diagnosis [place] [address] [address] 03/03/2025 Obi Byrnes Plan Of Treatment No Information Progress Notes * MADY ANGUIANO SDOB: [birth year] (50 yo F)Acc No.[id number]:03/03/2025 Patient: MADY BOURGEOIS Provider: ASHWIN DUNAWAY :1975 A ge:49 Y S ex:Female Date:03/03/2025 Phone: Address:[address] , [facility] Pcp:Merlin Watson MD Subjective: * Chief Complaints: * R /S-pt got the wrong address Billing Information: * Procedure Codes: * Electronic signature of ASHWIN Garzon on 10/16/2025 at 11:06 AM RESIN REMOVER Sign off status: Pending * Provider: ASHWIN DUNAWAY Date: 0 03/03/2025 Generated for Printi ng/Faxing/eTransmitting on: 1 12/16/2024 11:06 AM RESIN REMOVER
--- OUTSIDE RECORDS SUMMARY | 2025-09-16 08:45 | XMS_ITS ---
Author Organization [facility] [employer] [facility] Address [address] [place] [address] [address] Care Team Providers Care Shirt Folding Machine Operator Name Role Phone Walter ANSARI, [facility] Primary Care Provider UnavailObi Lopez Unavailable [phone] REASON FOR VISIT 3 month f/u Social History Sex Assigned At : Social History Observation Description Sex Assigned At Female Encounters Encounter Location Date Provider Diagnosis [facility] [address] [address] 09/16/2025 Obi Byrnes Plan Of Treatment No Information Progress Notes * MADY ANGUIANO SDOB: [birth year] (50 yo F)Acc No.[id number]:09/16/2025 Patient: MADY BOURGEOIS Provider: ASHWIN DUNAWAY :1975 A ge:50 Y S ex:Female Date:09/16/2025 Phone: Address:[address] , [facility] Pcp:Merlin Watson MD Subjective: * Chief Complaints: * 3 month f/u Billing Information: * Procedure Codes: * Electronic signature of ASHWIN Garzon on 10/16/2025 at 11:05 AM HELP DESK TECHNICIAN Sign off status: Pending * Provider: ASHWIN DUNAWAY Date: Generated for Printi ng/Faxing/eTransmitting on: 12/16/2024 11:05 AM HELP DESK TECHNICIAN
--- NOTE | ~2025-10-16 | MR_ITS ---
EXAM/PROCEDURE: MR brain/brain stem wo/w con HISTORY: seizure COMPARISON: None TECHNIQUE: Pre and postcontrast enhanced brain MRI performed. FINDINGS: 2.0 x 1.4 x 1.7 cm T1 and T2 weighted hyperintense, avidly enhancing well- circumscribed oval-shaped mass present along the inner table of the high left parafalcine occipital bone. See image 18 series 7. No acute-appearing mass effect seen. No acute ischemic event. Hippocampal regions are symmetric with no mesial temporal sclerosis changes. Vascular flow voids patent at skull base. Brainstem and cerebellum appear normal. Paranasal periorbital and calvarial structures appear intact. IMPRESSION: 1. A 2.0 x 1.7 x 1.4 cm benign-appearing avidly enhancing mass along the inner table of the high left occipital bone may represent meningioma. Query if patient has any previous imaging. 2. No acute ischemic event, mass effect or hemorrhage. 3. Other findings as above. Reviewed, dictated and finalized at location A. CAL NUMERICAL CONTROL OPERATOR IMPRESSION: 1. A 2.0 x 1.7 x 1.4 cm benign-appearing avidly enhancing mass along the inner table of the high left occipital bone may represent meningioma. Query if patie nt has any previous imaging. 2. No acute ischemic event, mass effect or hemorrhage. 3. Other findings as above.
--- OUTSIDE RECORDS SUMMARY | 2025-10-16 11:05 | XMS_ITS | Encounter Summary ---
Author Organization [facility] Address [address] [place] [address] Phone Care Team Providers Care Electric Car Operator Name Role Phone Merlin Watson MD Primary Care Provider [phone] Merlin Watson MD Primary Care Provider Merlin Watson MD Primary Care Provider [phone] Merlin Watson MD Primary Care Provider Geronimo Guerrero MD Unavailable [phone] Raheem Barksdale MD Unavailable [phone] August Bhakta DO Unavailable [phone] Encounter Details Date Type Department Care Team [...] on file Legal Sex Female 3:52 AM OUTSIDE EVENT SALES SPECIALIST Gender Identity Female 08/26/2019 9:10 AM CDT [...] on filedocumented in this encounter Care Teams Electric Car Operator Relationship Specialty Start Date End Date Merlin Watson MD [address] [place], [place] [id number] PCP - General Technical Inspector 04/10/18 05/12/19 Merlin Watson MD [address] [address] PCP - General Family Medicine 05/13/19 05/27/19 Merlin Watson MD [address] [place], [place] [address] PCP - General 05/28/19 09/14/20 Merlin Watson MD [address] [facility] [address] PCP - General 09/15/20 Geronimo Guerrero MD [address] [facility] [place] [place] [address] Neurologist Neurology 04/29/21 Raheem Barksdale MD [address] [facility] [place] [place] [address] Consulting Physician Cardiology 01/01/23 August Bhakta DO [address] [place] [address] Referring Physician Surgery 01/16/25 documented as of this encounter
--- OUTSIDE RECORDS SUMMARY | 2025-10-16 11:05 | XMS_ITS | Patient Health Record ---
Author Organization [facility] [email or web address] [facility] Address [address] [facility] [address] [place] [address] Care Team Providers Care C Engineer Name Role Phone Walter ANSARI, [facility] Primary Care Provider UnavailObi Lopez Unavailable [phone] Gabriela Martin Unavailable [phone] Allergies No Known Allergies Reason For Referral No Information Medications Medication SIG (Take, Route, Frequency, Duration) Notes Start Date End Date Status Cefadroxil 500 MG Capsule Oral 02/26/2024 Active Ciprofloxacin HCl 500 MG Tablet Oral 02/26/2024 Active Cephalexin 500 MG Capsule Oral 02/26/2024 Active Atorvastatin Calcium 40 MG Tablet Oral 02/26/2024 Active Meloxicam 7.5 MG Tablet Oral 02/26/2024 Active Pravastatin Sodium 40 MG Tablet Oral 02/26/2024 Active Sertraline HCl 25 MG Tablet 1 tablet tayo ly x 7 days then 2 tablets daily x 7 days Orally Once a day; Duration: 7 days 08/18/2025 Active Pregabalin 150 MG Capsule Oral 02/26/2024 Active Sertraline HCl 100 MG Tablet 1 tablet Or ally Once a day; Duration: 30 day(s) 08/18/2025 Active Atorvastatin Calcium 20 MG Tablet Oral 02/26/2024 Active Ferrous Sulfate 325 (65 Fe) MG Tablet Oral 02/26/2024 Active Winkelman Thyroid 60 MG Tablet Oral 02/26/2024 Active ALPRAZolam 1 MG Tablet 1 tablet Oral four times a day; Duration: 30 days As needed 09/24/2025 Active Midodrine HCl 5 MG Tablet Oral 02/26/2024 Active Allopurinol 300 MG Tablet Oral 02/26/2024 Active metFORMIN HCl ER 500 MG Tablet Extended Release 24 Hour Oral 02/26/2024 Active Indomethacin 50 MG Capsule Oral 02/26/2024 Active Ondansetron 4 MG Tablet Disintegrating Oral 02/26/2024 Active Cyclobenzaprine HCl 10 MG Tablet Oral 02/26/2024 Active Erythromycin Base 500 MG Tablet Oral 02/26/2024 Active Ergocalciferol 1.25 MG (5000 0 UT) Capsule Oral 02/26/2024 Active Lisinopril 10 MG Tablet Oral 02/26/2024 Active Lidocaine 5% Patch External 02/26/2024 Active Cyclobenzaprine HCl 5 MG Tablet Oral 02/26/2024 Active traMADol HCl 50 MG Tablet Oral 02/26/2024 Active Modafinil 100 MG Tablet Oral 02/26/2024 Active Gabapentin 300 MG Capsule Oral 02/26/2024 Active hydrOXYzine HCl 25 MG Tablet Oral 02/26/2024 Active Linzess 72 mcg Capsule Oral 02/26/2024 Active Promethazine HCl 25 MG Tablet Oral 02/26/2024 Active Midodrine HCl 2.5 MG Tablet Oral 02/26/2024 Active ALPRAZolam 1 MG Tablet TAKE 1 TABLET BY MOUTH FOUR TIMES A DAY NEEDED 30 DAYS; Duration: 30 07/03/2025 Active Armodafinil 250 mg Tablet Oral 02/26/2024 Active Linzess 290 MCG Capsule Oral 02/26/2024 Active Clopidogrel Bisulfate 75 MG Tablet Oral 02/26/2024 Active Gabapentin 600 MG Tablet Oral 02/26/2024 Active Gabapentin 800 MG Tablet Oral 02/26/2024 Active Winkelman Thyroid 15 MG Tablet Oral 02/26/2024 Active Immunizations Vaccine Route Administration Date Status Comme nts Influenza virus vaccine, quadrivalent (IIV4), split virus, 0.25 mL dosage Unknown 10/04/2016 Administered MMRV Unknown 12/01/2015 Administered Td (adult) Unknown 12/02/2015 Administered Social History Tobacco Use: Social History Observation Description Date Details (start date - stop date) Never Smoker NA - NA Sex Assigned At : Social History Observation Description Sex Assigned At Female Social History Tobacco Use: Social Info Question Answer Notes Tobacco Control (Standard) Tobacco use: Nonsmoker Additional Details Category Social Info Options Details Migrated Social History Migrated Social History Alcohol Intake: None 06/20/2022,Tobacco Years: Former smoker 11/27/2023 Problems Problem Type SNOMED Code ICD Code Onset Dates Problem Status W/U Status Risk Notes Problem Moderate recurrent major depression (61537946) Major depressive disorder, recurrent, moderate (F33.1) 4 Active confirmed Problem Generalized anxiety disorder (20820980) Generalized anxiety disorder (F41.1) 4 Active confirmed Problem Posttraumatic stress disorder (72563516) Post-traumatic stress disorder, chronic (F43.12) 4 Active confirmed Problem Primary insomnia (0150066) Primary insomnia (F51.01) 4 Active confirmed Encounters Encounter [facility] Date [facility] [address] [facility] [address] [place] [address] 10/27/2024 Obi Byrnes Generalized anxiety disorder F41.1 ; Post-traumatic stress disorder, chronic F43.12 ; Primary insomnia F51.01 and Major depressive disorder, recurrent, moderate F33.1 [place] [id number] [address] 04/01/2025 Obi Byrnes Generalized anxiety disorder F41.1 ; Post-traumatic stress disorder, chronic F43.12 ; Primary insomnia F51.01 and Major depressive disorder, recurrent, moderate F33.1 [facility] [address] [address] 08/18/2025 Obialisha Ramosoza Generalized anxiety disorder F41.1 ; Post-traumatic stress disorder, chronic F43.12 ; Primary insomnia F51.01 and Major depressive disorder, recurrent, moderate F33.1 [facility] [address] [address] 09/15/2025 Obi Byrnes [facility] [address] [address] 09/24/2025 Obi Byrnes Generalized anxiety disorder F41.1 ; Post-traumatic stress disorder, chronic F43.12 ; Primary insomnia F51.01 and Major depressive disorder, recurrent, moderate F33.1 [facility] [address] [address] 11/20/2024 Obi Byrnes [facility] [address] [address] 01/23/2025 Gabriela Martin Generalized anxiety disorder F41.1 [facility] [address] [place] [address] [place] [address] 03/02/2025 Obialisha Byrnes Generalized anxiety disorder F41.1 [facility] [address] [place] [address] [place] [address] 03/03/2025 Obi Byrnes [facility], [facility] [address] [facility] [address] [place] [address] 04/01/2025 Obialisha Ramosoza [facility] [address] [facility] [address] [place] [address] 09/16/2025 Obialisha Ramosoza Generalized anxiety disorder F41.1 [facility] [address] [facility] [address] [place] [address] 08/16/2025 Obialisha Ramosoza [facility] [address] [facility] [address] [place] [address] 08/29/2025 Obi Byrnes [facility], [facility] [address] [facility] [address] [place] [address] 09/16/2025 Obialisha Marya [facility] [address] [facility] [address] [place] [address] 09/16/2025 Obi Byrnes Assessments Encounter Date Diagnosis (ICD Code) Assessment Notes Treatment Notes Treatment Clinical Notes Section Notes 10/27/2024 Generalized anxiety disorder (ICD-10 - F41.1) 1. Major Depressive Disorder: - Continue current treatment with [place] counselor, including booklets and assignments. Plan: - [...] or side effects related to marijuana use. 01/23/2025 Generalized anxiety disorder (ICD-10 - F41.1) 03/02/2025 Generalized anxiety disorder (ICD-10 - F41.1) 04/01/2025 Generalized anxiety disorder (ICD-10 - F41.1) 08/18/2025 Generalized anxiety disorder (ICD-10 - F41.1) 08/18/2025 Post-traumatic stress disorder, chronic (ICD-10 - F43.12) 09/16/2025 Generalized anxiety disorder (ICD-10 - F41.1) 09/24/2025 Generalized anxiety disorder (ICD-10 - F41.1) 09/24/2025 Post-traumatic stress disorder, chronic (ICD-10 - F43.12) 08/18/2025 Primary insomnia (ICD-10 - F51.01) persistent 04/01/2025 Post-traumatic stress disorder, chronic (ICD-10 - F43.12) 10/27/2024 Post-traumatic stress disorder, chronic (ICD-10 - F43.12) 1. Major Depressive Disorder: - Continue current treatment with [facility] counselor, including booklets and assignments. Plan: - [...] side effects related to marijuana use. 10/27/2024 Primary insomnia (ICD-10 - F51.01) 1. Major Depressive Disorder: - Continue current treatment with [facility] counselor, including booklets and assignments. Plan: - [...] side effects related to marijuana use. 04/01/2025 Primary insomnia (ICD-10 - F51.01) persistent 08/18/2025 Major depressive disorder, recurrent, moderate (ICD-10 - F33.1) 09/24/2025 Primary insomnia (ICD-10 - F51.01) persistent 09/24/2025 Major depressive disorder, recurrent, moderate (ICD-10 - F33.1) 04/01/2025 Major depressive disorder, recurrent, moderate (ICD-10 - F33.1) 10/27/2024 Major depressive disorder, recurrent, moderate (ICD-10 - F33.1) 1. Major Depressive Disorder: - Continue current treatment with [facility] counselor, including booklets and assignments. Plan: - [...] Depressive Disorder: - Continue current treatment with [facility] counselor, including booklets and assignments. Plan: - [...] for 3 months - Send prescription to [facility] pharmacy in [place] for pickup by Harjinder - Follow up [...] efforts have been made to correct them. 08/18/2025 Joel FREEMAN presents with ongoing PTSD symptoms, anxiety, and sleep disturbances, complicated by recent stress seizures and identity theft. Posttraumatic Stress Disorder (PTSD) Assessment: Patient continues to experience PTSD symptoms. Previous treatments including Abilify, prazosin, trazodone, and Trintellix have been tried with limited success. Prosociation was reported to have worked initially but efficacy waned over time. Current management with Xanax is ongoing, but additional interventions are being considered to target specific PTSD symptoms. Plan: - Initiate sertraline for PTSD and anxiety symptoms: - 25 mg PO daily for 1 week - Increase to 50 mg PO daily for 1 week - Then increase to 100 mg PO daily - Continue current Xanax regimen - Discontinue consideration of prazosin due to limited expected benefit - Follow up in 1 month to assess response to sertraline Insomnia Assessment: Patient reports ongoing sleep disturbances. Previous trials of various medications including trazodone have not provided adequate relief. Considering options that may address both PTSD symptoms and sleep issues without causing excessive sedation. Plan: - Initiate sertraline as outlined above, which may indirectly improve sleep by addressing anxiety and PTSD symptoms - Monitor for improvement in sleep with sertraline treatment Anxiety Assessment: Patient continues to experience anxiety symptoms, currently managed with Xanax. Exploring additional treatment options to address both anxiety and PTSD symptoms more comprehensively. Plan: - Initiate sertraline as outlined above for anxiety symptoms - Continue current Xanax regimen - Monitor for improvement in anxiety symptoms with sertraline treatment the note is transcribed using speech recognition software. It is a reflection of a visit with the patient. It might have some inaccuracy, including medication names and transcribing errors, though efforts have been made to correct them. 09/24/2025 Joel Freeman is a patient who discontinued sertraline due to sleep disturbances and memory issues. PTSD Assessment: Patient has PTSD symptoms for which sertraline was trialed. However, sertraline was discontinued due to sleep problems and poor tolerance. Patient experienced significant sleep disturbances including sleeping until 4 PM after taking ZzzQuil, which she does not remember taking. Currently managed with Xanax only. 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 Experiencing significant speech difficulties including word-finding problems and inability to recall personal information such as phone number without looking it up. MRI scheduled for October 01 to assess extent of brain damage. Has brain stem condition affecting temperature regulation. Plan: - MRI with and without contrast scheduled for October 01 Congestive heart failure Assessment: Patient has congestive heart failure with associated orthostatic hypertension. Currently on furosemide 40 mg with potassium supplementation for management. Plan: - Continue furosemide 40 mg - Continue potassium supplementation Sleep disorder Assessment: Patient has sleep issues requiring sleep study evaluation. Recent emergency room visit due to inability to maintain normal body temperature (dropped to 95 degrees), likely related to brain stem dysfunction affecting thermoregulation. Plan: - Sleep study scheduled for October 01 the note is transcribed using speech recognition [...] Coverage End Date [employer] [employer] [address] [place] [address] [id number] HARJINDER FREEMAN Spouse - patient is the spouse of the insured Medicare-I l Medicare [address] [place] [address] [id number] MADY FREEMAN Self - patient is the insured Medical (General) History Surgical History Surgery Date(Month/Year) Removal of gallbladder (08730) Any surgical history Other Tonsilectomy/adenoids Breast surgery (21005) 01/26/2018 Hysterectomy (13323) 05/26/2015
--- OUTSIDE RECORDS SUMMARY | 2025-10-16 11:05 | XMS_ITS | Clinical Summary ---
Author Organization [facility] Address [address] [place] [address] Care Team Providers Care Usability Architect Name Role Phone Merlin Watson MD Primary Care Provider [phone] Geronimo Guerrero MD Unavailable [phone] Raheem Barksdale MD Unavailable [phone] August Bhakta DO Unavailable Allergies Active Allergy Reactions Criticality Noted Date [...] (01/05/2023): Added automatically from request for surgery [id number] History of syncope 03/30/2022 Localized edema 05/16/2021 [...] Cancer (HCC) 2014 Depression 2015 Diabetes mellitus 2014 Migraines 2015 Heart disease 2016 Hypertension [...] Father Vasquez Velázquez Brain Arthritis Maternal Grandmother [facility] Any[facility] Cancer Maternal Grandmother [facility] [place] Stroke Maternal Grandmother [facility] Brain Anyerism Alzheimer's disease Mother Deann Parr [...] Sister Bing Carter Cancer Paternal Grandfather Uriel [place] Brain Bleed/ Cancer Stroke Paternal Grandfather Uriel [place] Brain Bleed/ Cancer Alzheimer's disease Paternal Grandmother Juhi zaldivar Arthritis Paternal Grandmother Juhi Velázquez Memory loss Paternal Grandmother Juhi Velázquez Depression Sister Bettye Garcia Diabetes Sister Bettye Garcia Hearing loss Sister Bettye Garcia Hypertension Sister Bettye Garcia Hypertension; Kidney disease Sister Bettye Garcia Obesity Sister Bettye Garcia Relation Name Status Comments Brother Uriel Velázquez Father Vasquez Velázquez Brain (Age 51) Maternal Grandmother [facility] [place] Brain Anyerism Mother Deann Parr Mother's Sister Bing Carter Paternal Grandfather Uriel [place] Brain Bleed/ Cancer Paternal Grandmother Juhi Velázquez [...] on file Legal Sex Female 3:52 AM NEEDLE MOLDER Gender Identity Female 08/26/2019 9:10 AM CDT Sexual Orientation Straight 08/26/2019 9: 10 AM CDT Occupation Industry Job Start Date Job End Date disabled Not on file Not on file Not on file Last Filed Vital Signs Vital Sign Reading Time Taken Comments Blood Pressure 135/75 01/23/2025 8:30 AM NEEDLE MOLDER Pulse 71 01/23/2025 8:30 AM NEEDLE MOLDER Temperature 36.2 C (97.2 F) 01/23/2025 7:56 AM NEEDLE MOLDER Respiratory Rate 14 01/23/2025 8:30 AM NEEDLE MOLDER Oxygen Saturation 100% 01/23/2025 8:30 AM NEEDLE MOLDER Inhaled Oxygen Concentration - - Weight 90.7 kg (200 lb) 01/23/2025 6:56 AM NEEDLE MOLDER Height 175.3 cm (5' 9) 01/23/2025 6:56 AM NEEDLE MOLDER Body Mass Index 29.53 01/23/2025 6:56 AM NEEDLE MOLDER Plan of Treatment Health Maintenance Due Date [...] of 2) 2024 Lipid Panel 02/18/2025 02/19/2024, 11/12/2022, 05/16/2021, Additional history exists Influenza Vaccine (#1) 2025 6, 01/05/2015, 12/15/2014, Additional history exists DTaP/Tdap/Td Vaccine (2 - Td or Tdap) 11/28/2033 11/28/2023 Colon Cancer Screening-Colonoscopy 01/23/2035 01/23/2025, 01/22/2023, 04/24/2017 Procedures Procedure Name Priority Date/Time Associated Diagnosis Comments COLONOSCOPY 01/23/2025 7:20 AM NEEDLE MOLDER POCT LIPID PANEL Routine 02/19/2024 2:12 PM CDT Mixed hyperlipidemia HEMOGLOBIN A1C Routine 04/29/2021 1:07 PM CDT from Last 3 Months or Most Recently Relevant to Health Maintenance Results * Colonoscopy (01/23/2025 7:20 AM NEEDLE MOLDER) Anatomical Region Laterality Modality Other Narrative Procedure Note Matthew Witt MD - 01/23/2025 7:20 AM CST [facility] Patient Name: Vika Freeman Procedure Date: 01/23/2025 7:20 AM Date of : 1975 Admit Type: Outpatient Age: 49 Gender: Female Attending MD: Matthew Witt M.D. Room: [facility] ENDOSCOPY ROOM 02 Note Status: Finalized [...] The scope was passed under direct vision.The [id number] Colonoscope was introducedthrough the anus and advanced [...] On: 01/23/2025 7:20 AM Recognized by the [employer] for promoting quality [...] 6.4(H) 4.0 - 5.6 % JOSE DAVID ESTRADA Estimated Average Glucose 137 mg/dL JOSE DAVID ESTRADA Comment: The ADA recommends reporting an estimated Average Glucose (eAG) with all Hemoglobin A1c results using the equation derived from a study of 507 normal and diabetic adults. Minority populations were underrepresented and children were not included. (Diabetes Care 2020; 43(S1): S66-S76). The eAG is not equivalent to a fasting glucose. Blood specimen (specimen) 04/29/2021 1:07 PM CDT 04/29/2021 1:28 PM CDT aMtthew Wilhelm Jr., MD LAB BLOOD ORDERABL ES Final Result JOSE DAVID [facility] Department [place] [address] from Last 3 Months or Most Recently Relevant to Health Maintenance Insurance Microland MD MEDICARE Microland MD MEDICARE [facility] MEDICARE Advance Directives For more information, please contact: [phone] * Full Code (Latest Code Status on File) Date Activated Date Inactivated Comments 01/23/2025 6:49 AM 01/23/2025 12:51 PM * Full Code Date Activated Date Inactivated Comments 01/22/2023 9:08 AM 01/22/2023 3:39 PM Care Teams Usability Architect Relationship Specialty Start Date End Date Merlin Watson MD [address] [facility] [place] [address] PCP - General 09/15/20 Geronimo Guerrero MD [address] [facility] [place] [address] Neurologist Neurology 04/29/21 Raheem Barksdale MD [address] [facility] [place] [address] Consulting Physician Cardiology 01/01/23 August Bhakta DO [address] [place], [place] [address] Referring Physician Surgery 01/16/25
--- OUTSIDE RECORDS SUMMARY | 2025-10-16 11:05 | XMS_ITS | Patient Health Record ---
Author Organization [facility] Address [address] [facility] [address] [place] [address] Care Team Providers Care Airport Ramp Agent Name Role Phone [facility] Primary Care Provider Vipul Richardson Unavailable [phone] Allergies Allergen (clinical drug ingredient) Drug/Non Drug Allergy documented on EMR Reaction Allergy Type Onset Date Status pantoprazole Protonix Rash Drug Allergy Acti ve sulfamethoxazole / trimethoprim Sulfamethoxazole-Tr imethoprim Rash Drug Allergy Active Reason For Referral No Information Medications Medication SIG (Take, Route, Frequency, Duration) Notes Start Date End Date Status hydrOXYzine HCl 25 MG 1/2 tab orally BID Active Indomethacin 50 MG 1 cap(s) orally BID Active Ketorolac Tromethamine 10 MG 1 tab(s) orally 3 times a day Active Vitamin D (Ergocalciferol) 2000 INTL UNITS 2 CAPS ORALLY ONCE A DAY *Please review and pick correct strength-formulati on from [employer] options. If intended option is not shown, discontinue and re-order from Quick Search* Active Aspirin 81 MG 1 tab(s) chewed once a day; Duration: 30 day(s) Active Vitamin D (Ergocalciferol) 1.25 MG (53353 UT) 1 cap(s) orally once a week; Duration: 30 day(s) Active Atorvastatin Calcium 10 MG 1 tab(s) orally once a day; Duration: 30 days Active Xanax 1 MG 1 tab(s) orally 4xday Active Benadryl Allergy 25 MG 2 cap(s) orally at bedtime Active Zetia 10 MG 1 tab(s) orally once a day; Duration: 30 day(s) Active busPIRone HCl 5 MG 1 tab(s) orally QD Active Cyclobenzaprine HCl 5 MG 5 mg BID, 10 mg at bedtime orally Active Ferrous Sulfate 325 (65 Fe) MG 1 tab(s) orally BID Active Gabapentin 800 MG 1 tab orally 3 times a day Active traMADol HCl 50 MG 1 tab(s) orally every 8 hours Active Plavix 75 MG 1 tab(s) orally once a day; Duration: 30 day(s) Active Promethazine HCl 25 MG 1 tab(s) orally TID Active Abilify 5 MG 1 tab(s) orally once a day Active Lidocaine 5 % 1 PATCH applied topically once a day; Duration: 30 day(s) Active Linzess 290 MCG 1 cap(s) orally once a day Active Lisinopril 10 MG 1 tab(s) orally once a day; Duration: 30 day(s) Active Meclizine HCl 25 MG 1 tab(s) orally 3 times a day Active Meloxicam 7.5 MG 1 tab(s) orally once a day; Duration: 30 day(s) Active metFORMIN HCl ER 500 MG 1 tab(s) orally once a day Active Midodrine HCl 2.5 MG 1 tab(s) orally BID Active Modafinil 100 MG 1 tab(s) orally once a day (in the morning); Duration: 30 day(s) Active [place] Thyroid 15 MG 3 tabs 3 days a week and 2 tabs 4 days a week orally Once a day; Duration: 30 days Active Social History Tobacco Use: Social History Observation Description Date Details (start date - stop date) Never Smoker NA - NA TU Question Answer Notes Are you a smoker never smoker Problems Problem Type SNOMED Code ICD Code Onset Dates Problem Status W/U Status Risk Notes Problem Acquired hypothyroidism (781841416) Acquired hypothyroidism (E03.9) Active confirmed Problem Multinodular goiter (853165249) Multinodular goiter (E04.2) Active confirmed Plan Of Treatment Pending Test Test Name Order Date TSH 06/15/2023 Ultrasound : Head, Neck, Thyroid 023 T3, TOTAL 06/15/2023 Medical (General) History Medical History History ICD Code Hypothyroidism Arthritis Bilateral hip joint pain Chronic fatigue syndrome Primary malignant neoplasm of vertebral column Poor short-term memory Cerebral atrophy Sleep terror disorder Neck pain Tachycardia Localized visual field defect Vasovagal syncope Paroxysmal supreaventricular tachycardia Hyperlipidemia Benign neoplasm of spine T12 Pure autonomic failure Multisystem degeneration of autonomic ne rvous system Rheumatoid arthritis Multiple system atrophy - has spread fro m brainstem to global brain atrophy Pernicious anemia Autonomic neuropathy Dystonia Hypokalemia Hyperkalemia Orthostatic hypotension Fatigue Insomnia PTSD Migraines Neoplasm of liver Gastroparesis Primary gout Peripheral nerve disease Neoplasm of lung Kidney disease Adenoma of liver Fibromyalgia Depression Anxiety Palpitations Nerve injury Malignant tumor of breast 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
--- OUTSIDE RECORDS SUMMARY | 2025-10-16 11:06 | XMS_ITS ---
Author Organization [facility] al Address [address] [place] [address] Care Team Providers Care Route Delivery Manager Name Role Phone Merlin Watson MD Primary Care Provider [phone] Geronimo Guerrero MD Unavailable Raheem Barksdale MD Unavailable [phone] August Bhakta DO Unavailable [phone] Active Problems Problem Noted Date Diagnosed Date Abnormal PET scan of colon 01/16/2025 History of colon polyps 01/16/2025 History of breast cancer 01/16/2025 Statin myopathy 10/17/2023 Colon polyp 01/05/2023 Overview (01/05/2023): Added automatically from request for surgery [id number] History of syncope 03/30/2022 Localized edema 05/16/2021 [...]
--- OUTSIDE RECORDS SUMMARY | 2025-10-16 11:06 | XMS_ITS | Clinical Summary ---
Author Organization [facility] Address [address] [place] [address] Care Team Providers Care Nozzle Cement Sprayer Helper Name Role Phone Merlin Watson Unavailable Unavailable Merlin Watson Primary Care Provider Unavailab le Source Comments [facility],non-owned Affiliates and Associated Physician Practices is amultiple site organization consisting of ambulatory clinics and hospital sitesin [place], [place], [place] and [place]. This disclosure is being madepursuant to the [...] by mouth Active vitamin D, ergocalciferol, (DRISDOL) 77629 UNITS capsule Take 1 Cap by mouth [...] daily with morning and evening meal Active [employer] ULTRA TEST STRIPS test strip 8 Active [...] Comments Blood Pressure 128/81 01/26/2020 6:58 PM MANUAL PLATE FILLER Pulse 76 01/26/2020 6:58 PM MANUAL PLATE FILLER Temperature 36.1 C (97 F) 01/26/2020 4:31 PM MANUAL PLATE FILLER Respiratory Rate 13 01/26/2020 6:58 PM MANUAL PLATE FILLER Oxygen Saturation 97% 01/26/2020 6:58 PM MANUAL PLATE FILLER Inhaled Oxygen Concentration - - Weight 120.7 kg (266 lb 1.5 oz) 01/26/2020 4:31 PM MANUAL PLATE FILLER Height 175.3 cm (5' 9) 01/26/2020 5:29 PM MANUAL PLATE FILLER Body Mass Index 39.3 08/19/2019 2:36 PM [...] of 3 - 19+ 3-dose series) 1993 PAP SMEAR 1995 Cervical Cancer Screening 2004 PAP with HPV 2004 SCREENING FOR DIABETES 01/25/2023 0, 01/26/2020, 01/10/2018 PNEUMOCOCCAL VACCINE 50+ (1 of 1 - PCV) 2024 ZOSTER VACCINE (1 of 2) 2024 DEPRESSION SCREENING 11/26/2024 COVID-19 VACCINE (1 - 2024-2 6 season) 2025 INFLUENZA VACCINE (#1) 2025 HIB [...] your last dose Safety General On track( 2:46 PM CDT) No Liana Hoyt RN Note: Expected end date: Ongoing Interventions: Your nurse will assess your risk for falls/injury each visit Make sure appropriate safety devices are available and within reach Review the fall prevention instruction sheet given to you during your visit Procedures Procedure Name Priority Date/Time Associated Diagnosis Comments COMPREHENSIVE METABOLIC PANEL STAT 01/26/2020 5:00 PM MANUAL PLATE FILLER from Last 3 Months or Most Recently Relevant to Health Maintenance Results * (ABNORMAL) COMPREHENSIVE METABOLIC PANEL (01/26/2020 5:00 PM MANUAL PLATE FILLER) BUN 12 7 - 26 mg/dL 01/26/2020 5:34 PM [facility] Creatinine 0.7 0.6 - 1.2 mg/dL 01/26/2020 5:34 PM [facility] Sodium 142 136 - 145 mmol/L 01/26/2020 5:34 PM [facility] Potassium 3.7 3.5 - 4.5 mmol/L 01/26/2020 5:34 PM [facility] Chloride 110(H) 98 - 107 mmol/L 01/26/2020 5:34 PM [facility] CO2 23 22 - 29 mmol/L 01/26/2020 5:34 PM [facility] Glucose 111 70 - 115 mg/dL 01/26/2020 5:34 PM [facility] Calcium 8.4 8.4 - 10.2 mg/dL 01/26/2020 5:34 PM [facility] Protein Total 5.8(L) 6.0 - 8.3 g/dL 01/26/2020 5:34 PM [facility] Albumin 3.4 3.4 - 5.0 g/dL 01/26/2020 5:34 PM [facility] Bilirubin Total 0.3 0.2 - 1.2 mg/dL 01/26/2020 5:34 PM [facility] Alkaline Phosphatase 112 40 - 150 Units/L 01/26/2020 5:34 PM [facility] ALT 28 0 - 55 Units/L 01/26/2020 5:34 PM [facility] AST 17 5 - 34 Units/L 01/26/2020 5:34 PM [facility] Anion Gap 13 8 - 18 01/26/2020 5:34 PM [facility] BUN/Creatinine Ratio 17 7 - 23 01/26/2020 5:34 PM [facility] Osmolality Calculated 294 270 - 300 mOsm/kg 01/26/2020 5:34 PM [facility] Albumin/Globulin Ratio 1.4 1.1 - 2.3 01/26/2020 5:34 PM [facility] eGFR >60 >60 mL/min/1.7 3 m2 01/26/2020 5:34 PM [facility] Blood BLOOD SPECIMEN / Unknown Venipuncture / Unknown 01/26/2020 5:00 PM MANUAL PLATE FILLER 01/26/2020 5:09 PM [facility] Delores Mcmullen MD LAB - CHEMISTRY ORDERABLES Fin al Result Performing Organization Address [facility] Co de Phone Number [address] [phone] from Last 3 Months or Most Recently Relevant to Health Maintenance Insurance [employer] MEDICARE [facility] MEDICARE ANTHEM MEDICARE ANTHEM Care Teams Nozzle Cement Sprayer Helper Relationship Specialty Start Date End Date Merlin Watson Update Information PCP - General 01/28/20 Merlin Watson Update Information 01/26/20
--- OUTSIDE RECORDS SUMMARY | 2025-10-16 11:06 | XMS_ITS | Clinical Summary ---
Author Organization [facility] Address [address] [place] [address] Phone Care Team Providers Care Flavorer Name Role Phone Jorge Alberto Syed MD Primary Care Provider [phone] Allergies Active Allergy Reactions Criticality Noted Date [...] daily. 5 8 Active ergocalciferol (VITAMIN D) 94311 UNIT Capsule Take 50,000 Units by mouth [...] Years Used Date Smoking Tobacco: Former Cigarettes 16 0 07/04/1991 - 07/04/2007 Smokeless Tobacco: Never Tobacco Cessation:Counseling Given: No Comments No Sex and Gender Information Value Date Recorded Sex Assigned at Not on file Legal Sex Female 1:22 PM HABITAT MANAGEMENT COORDINATOR Gender Identity Not on file Sexual Orientation [...] Virus (HCV) Screening 1974 TdaP Immunization 1974 Varicella Immunization (1 of 2 - 13+ 2-dose series) 1987 Hepatitis B Immunization (1 of 3 - 19+ 3-dose series) 1993 Cologuard 2019 Colonoscopy 2019 Colorectal Cancer Screening 2019 Immunochemical Fecal Occult Blood 2019 Pneumococcal Immunization (5 0+ years) (1 of 1 - PCV) 2024 Zoster Immunization (1 of 2) 2024 Influenza Immunization (#1) 2025 10/04/2016 SARS-COV-2 Immunization (1 - 2024- season) 2025 Respiratory Syncytial Virus (RSV) Immunization [...] to complete this topic Insurance Care Teams Flavorer Relationship Specialty Start Date End Date Dossett, Jorge Alberto W, MD [address] [place] [address] PCP - General Family Medicine 06/26/18
--- OUTSIDE RECORDS SUMMARY | 2025-10-16 11:06 | XMS_ITS ---
Author Organization [facility] Address [address] [place] [address] Care Team Providers Care Copy Holder Name Role Phone Merlin Watson Unavailable Unavailable [...]
== END 2025-10-16 11:01 | disposition home or self-care (01) ==
PROVIDERS: PCP Family Medicine
DX: R56.9 Unspecified convulsions (principal); G23.9 Degenerative disease of basal ganglia, unspecified
CPT/HCPCS: 70553; A9577